=== PATIENT | female | born 1970 | race Caucasian/White ===

== ENCOUNTER → 2017-08-26 14:38 | Outpatient (CLI) | payer OTHER, MEDICAID, SELFPAY ==
[2017-08-26 16:04] LABS: Alanine Aminotransferase 41 IU/L (9-52); Albumin 4.1 g/dL (3.5-5.0); Albumin Globulin Ratio 1.3 (1.0-2.8); Alkaline Phosphatase 107 U/L (38-126); Aspartate Aminotransferase 31 IU/L (14-36); Bilirubin Total 0.5 mg/dL (0.2-1.3); Blood Urea Nitrogen 12 mg/dL (7-17); Calcium 9.4 mg/dL (8.4-10.2); Carbon Dioxide 30 mmol/L (22-32); Chloride 99 mmol/L (98-107); Estimated Glomerular Filt Rate > 60.0 mL/min (>60); Globulin 3.2 g/dL (1.7-4.1); Glucose 79 mg/dL (70-100); HEMOLYSIS 19 (0-50); Potassium 4.5 mmol/L (3.4-5.1); Sodium 140 mmol/L (137-145); Total Protein 7.3 g/dL (6.3-8.2)
== END ==
PROVIDERS: PCP Family Medicine; Visit Provider Family Medicine
DX: I10 Essential (primary) hypertension (principal)
CPT/HCPCS: 36415; 80053

== ENCOUNTER → 2017-09-17 10:09 | Outpatient (CLI) | payer OTHER, MEDICAID, SELFPAY ==
[2017-09-17 11:16] LABS: Add Manual Diff / Slide Review NO; Basophils Percent Auto 0.1 % (0-2); Eosinophils Percent Auto 2.2 % (2-4); Hematocrit 42.5 % (36-46); Lymphocytes Percent Auto 19.9 % (25-40); Mean Corpuscular HGB Conc 32.8 % (30-36); Mean Corpuscular Volume 79.2 fL (80-100); Monocytes Percent Auto 6.5 % (3-14); Neutrophils Absolute Auto 4400 /uL (3000-5900); Neutrophils Percent Auto 71.3 % (50-75); Platelet Count 484 X10^3/uL (150-400); Red Blood Cell Count 5.37 X10^6/uL (4.0-5.2); Red Cell Distribution Width 13.5 % (11.6-14.8); White Blood Cell Count 6.2 X10^3/uL (4.5-11.0)
[2017-09-17 11:32] LABS: BUN Creatinine Ratio 17.1 (6-22); Blood Urea Nitrogen 12 mg/dL (7-17); Calcium 9.8 mg/dL (8.4-10.2); Carbon Dioxide 31 mmol/L (22-32); Chloride 99 mmol/L (98-107); Cholesterol 290 mg/dL (140-199); Estimated Glomerular Filt Rate > 60.0 mL/min (>60); Glucose 91 mg/dL (70-100); HDL Cholesterol 51 mg/dL (40-60); HEMOLYSIS < 15 (0-50); LDL Cholesterol Calculated 201 mg/dL (<100); Potassium 4.8 mmol/L (3.4-5.1); Sodium 140 mmol/L (137-145); Triglycerides 189 mg/dL (35-150)
[2017-09-17 12:03] LABS: TSH w/ Reflex to FT4 0.39 uIU/mL (0.47-4.68)
[2017-09-17 13:57] LABS: Free T4, Direct Thyroxine 1.43 ng/dL (0.78-2.19)
== END ==
PROVIDERS: PCP Family Medicine; Visit Provider Family Medicine
DX: R42 Dizziness and giddiness (principal)
CPT/HCPCS: 36415; 80048; 80061; 84439; 84443; 85025

== ENCOUNTER → 2017-09-25 15:00 | Outpatient (CLI) | payer OTHER, MEDICAID, SELFPAY ==
[2017-09-25 16:24] LABS: TSH w/ Reflex to FT4 0.55 uIU/mL (0.47-4.68)
== END ==
PROVIDERS: PCP Family Medicine; Visit Provider Family Medicine
DX: E05.90 Thyrotoxicosis, unspecified without thyrotoxic crisis or storm (principal)
CPT/HCPCS: 36415; 84443

== ENCOUNTER → 2017-10-18 08:09 | Outpatient (CLI) | payer OTHER, MEDICAID, SELFPAY ==
--- NOTE | 2017-10-18 09:28 | PM.TREADMILL ---
Cardiac Stress Test Report Referral & Results Date Patient Seen: 10/18/17 Time Patient Seen: 09:28 Requesting provider: Kimberly Harp Indication: Chest pain Rest ECG: Unremarkable Procedure Note: Today following both written and verbal informed consent the patient was exercised according to a standard Alexis protocol patient went for a total of 6 min to seconds achieving a maximum heart rate of 146 maximum systolic blood pressure of 188. This is approximately 7.0 METS. Exercise was terminated at this point because of inability the patient to continue and targets having been met. Patient was also given Cardiolite through a previously started Hep-Lock IV by the nuclear fuel enrichment technician approximately 1 minute prior to the cessation of exercise. There are no ST-T segment changes Normal heart rate and blood pressure response to exercise Functional aerobic impairment rated 15% on the sedentary scale Rare PVCs were identified as well Impression: No evidence of ischemia based on ECG Average exercise capacity Perfusion imaging to be reported separately Please note: Actual ECG tracings can be found in the PACS system.
--- NOTE | 2017-10-23 14:44 | DI.NM.S_ITS ---
DATE OF SERVICE: 10/18/2017 REFERRING PHYSICIAN: Kimberly Harp MD PROCEDURE: Nuclear cardiac stress study. INDICATIONS: Fatigue and exertional lightheadedness. STRESS TEST: This patient was exercised according to a regular Alexis protocol for a total of 6 minutes and 2 seconds stopping due to fatigue. She reached a peak heart rate of 144 b beats per minute representing 84% of her maximum predicted heart rate. She had no complaints of chest discomfort or EKG changes of ischemia. No significant dysrhythmias identified. PROCEDURE: This patient received 26.2 mCi of technetium-99 Myoview for the stress portion of the examination. She returned 3 days later for the resting portion of the examination receiving an additional 25.2 mCi. FINDINGS: Raw Data: Raw data images demonstrate prominent breast tissue artifact, otherwise overall good image quality. Quantitative Gated SPECT Imaging: Gated images show a normal size ventricle with an end-diastolic volume estimated at 82 cc. Patient has hyperdynamic left ventricular contractility apparent with an ejection fraction estimated at 90%. No regional wall motion abnormalities noted. Myocardial Perfusion SPECT Imaging: Myocardial perfusion imaging shows a modest amount of breast tissue attenuation artifact which was essentially resolved with prone imaging. There are no perfusion abnormalities that would suggest ischemia or scar. IMPRESSION: Normal nuclear cardiac stress study. Becka Laxmi - Jocelyne/ doc#: [id number]/job#: [id number] dd: 10/21/2017 16:17:00 dt: 10/23/2017 14:32:00 DICTATING /COPIES TO: Steven Sevilla MD COPIES MNE: SARAHI
--- NOTE | 2017-10-23 16:54 | DI.NM.S_ITS ---
DATE OF SERVICE: 10/18/2017 ORDERING PROVIDER: Kimberly Harp MD PROCEDURE PERFORMED: Exercise treadmill stress and rest myocardial perfusion imaging study with gating to assess ejection fraction and regional wall motion. INDICATIONS: The patient is a 46-year-old obese female with atypical chest discomfort and lightheadedness. EXERCISE TREADMILL TESTING: The patient was able to exercise for a total of 6 minutes 2 seconds on a standard Alexis protocol suggesting moderately impaired exercise capacity with an JAVIER of +15% on the sedentary scale. With this she had normal hemodynamic response achieving a maximum heart rate of 146 bpm (84% of predicted maximum). She had no chest discomfort. Her resting ECG is normal and there are no ischemic changes or arrhythmias with stress. At 4 minutes 55 seconds of exercise, at heart rate of 144 bpm, 26.2 mCi of technetium-99 Myoview was injected and the patient was imaged 15 minutes later using a gated SPECT acquisition protocol. The patient returned 3 days later and was reinjected with an additional 25.2 mCi of technetium-99 Myoview and was imaged 30 minutes later, again using a gated SPECT acquisition protocol. FINDINGS: 1. Raw Data: There is fair myocardial tracer uptake, although prominent breast shadows clearly produce significant attenuation. The lung/heart ratio is normal at 0.30 with a normal TID ratio of 0.78. 2. Quantitative Gated SPECT: Post stress ejection fraction is calculated to be 90%, although it is likely an overestimate due to relatively small left ventricular volumes. There are no focal wall motion abnormalities. Resting ejection fraction is estimated at 78% but visually appears similar to the post stress images. Resting end-diastolic volume is 88 mL. 3. Myocardial Perfusion Imaging: Post stress supine images shows a fairly normal myocardial perfusion pattern without any obvious perfusion defects. There is a slight defect in the mid anterior wall, consistent with breast attenuation and this completely resolves on the prone images. The resting images show an identical perfusion pattern without any areas of improvement. CONCLUSION: 1. Normal myocardial perfusion study. 2. No evidence for myocardial ischemia or previous myocardial infarction. 3. Normal left ventricular systolic function with relatively small left ventricular volumes. 4. Moderately impaired exercise capacity without angina or ECG evidence of ischemia and a normal hemodynamic response to exercise. Laxmi Jovel - Liliane/ doc#: [id number]/job#: [id number] dd: 10/23/2017 16:12:00 dt: 10/23/2017 16:28:00 DICTATING MD/COPIES TO: Santi Kumar MD; Kimberly Harp MD COPIES MNE: IRMA SUTTON
== END ==
PROVIDERS: Family Provider Family Medicine; PCP Family Medicine; Visit Provider Family Medicine
DX: R07.9 Chest pain, unspecified (principal); R42 Dizziness and giddiness
CPT/HCPCS: 78452; 93016; 93017; 93018; A9502

== ENCOUNTER → 2017-11-11 09:27 | Outpatient (CLI) | payer OTHER, MEDICAID, SELFPAY ==
[2017-11-11 10:12] LABS: Add Manual Diff / Slide Review NO; Basophils Percent Auto 0.9 % (0-2); Eosinophils Percent Auto 2.7 % (2-4); Hematocrit 43.4 % (36-46); Hemoglobin 14.4 g/dL (12.0-16.0); Lymphocytes Percent Auto 21.3 % (25-40); Mean Corpuscular HGB Conc 33.2 % (30-36); Mean Corpuscular Hemoglobin 25.9 PG (26-34); Mean Corpuscular Volume 78.1 fL (80-100); Monocytes Percent Auto 6.9 % (3-14); Neutrophils Absolute Auto 4200 /uL (3000-5900); Neutrophils Percent Auto 68.2 % (50-75); Platelet Count 459 X10^3/uL (150-400); Red Blood Cell Count 5.55 X10^6/uL (4.0-5.2); Red Cell Distribution Width 13.4 % (11.6-14.8); White Blood Cell Count 6.1 X10^3/uL (4.5-11.0)
[2017-11-11 10:25] LABS: Hemoglobin A1C% w Est Avg Glu 5.6 % (4.0-6.0)
[2017-11-11 10:56] LABS: Alanine Aminotransferase 51 IU/L (9-52); Albumin 4.5 g/dL (3.5-5.0); Albumin Globulin Ratio 1.4 (1.0-2.8); Alkaline Phosphatase 94 U/L (38-126); Aspartate Aminotransferase 37 IU/L (14-36); Bilirubin Total 0.5 mg/dL (0.2-1.3); Blood Urea Nitrogen 12 mg/dL (7-17); Carbon Dioxide 25 mmol/L (22-32); Chloride 103 mmol/L (98-107); Estimated Glomerular Filt Rate > 60.0 mL/min (>60); Globulin 3.3 g/dL (1.7-4.1); Glucose 98 mg/dL (70-100); HEMOLYSIS < 15 (0-50); Magnesium 1.8 mg/dL (1.6-2.3); Potassium 4.7 mmol/L (3.4-5.1); Sodium 142 mmol/L (137-145); Total Protein 7.8 g/dL (6.3-8.2)
[2017-11-11 11:12] LABS: Free T4, Direct Thyroxine 1.13 ng/dL (0.78-2.19); Triiodothryronine T3 Uptake 31.3 % (23.5-40.5)
[2017-11-11 11:26] LABS: Thyroid Stimulating Hormone 0.67 uIU/mL (0.47-4.68)
[2017-11-11 11:28] LABS: Erythrocyte Sedimentation Rate 5 MM/HR (0-20)
[2017-11-11 11:35] LABS: HIV 1 and 2 Antibody NEGATIVE (NEGATIVE)
[2017-11-11 14:09] LABS: Free T3, Triiodothyronine Free 3.76 pg/mL (2.77-5.27)
[2017-11-13 13:34] LABS: Insulin Level Total 11.3 uIU/mL (2.0-19.6)
[2017-11-13 14:10] LABS: Anti Thyroglobulin Antibody < 1 IU/mL (< 2)
[2017-11-13 15:16] LABS: Progesterone < 0.5 ng/mL
[2017-11-13 22:22] LABS: Estrogen 90.5 pg/mL
== END ==
PROVIDERS: Family Provider Family Medicine; PCP Family Medicine; Visit Provider Nurse Practitioner Family
DX: R53.83 Other fatigue (principal); I10 Essential (primary) hypertension; E01.0 Iodine-deficiency related diffuse (endemic) goiter; G47.00 Insomnia, unspecified; R00.2 Palpitations; R30.0 Dysuria; N95.1 Menopausal and female climacteric states
CPT/HCPCS: 36415; 80053; 82672; 83001; 83002; 83036; 83525; 83735; 84144; 84439; 84443; 84479; 84481; 85025; 85651; 86140; 86703; 86800

== ENCOUNTER 2018-05-21 17:20 | Emergency (ER) | payer OTHER, MEDICAID, SELFPAY ==
[2018-05-21 17:25] VITALS: BP 201/99; PULSE 82; RESP 15; TEMP 36.4; O2SAT 100; BMI 40.7
--- NOTE | 2018-05-21 17:41 | DI.RAD.S_ITS ---
PROCEDURE: XR CHEST 1V INDICATIONS: CHEST PAIN TECHNIQUE: One view of the chest was acquired. COMPARISON: None. FINDINGS: Surgical changes and devices: None. Lungs and pleura: Lungs are clear. No pleural effusions or pneumothorax. Mediastinum: Mediastinal contours appear normal. Heart size is normal. Bones and chest wall: No suspicious bony lesions. Overlying soft tissues appear unremarkable. IMPRESSION: Portable chest within normal limits. Dictated by: Topher Ahmadi M.D. on 05/21/2018 at 17:13 Approved by: Topher Ahmadi M.D. on 05/21/2018 at 17:14
[2018-05-21 17:45] VITALS: BP 188/92; PULSE 78; RESP 15; TEMP 36.4; O2SAT 100
--- NOTE | 2018-05-21 18:11 | ED.GENADULT ---
HPI - General Adult General Chief complaint: Hypertension Stated complaint: CONSISTANT DIZZINESS, HIGH BLOOD PRESSURE Time Seen by Provider: 05/21/18 17:41 Source: patient Mode of arrival: ambulatory Limitations: no limitations History of Present Illness HPI narrative: 47-year-old female with a history of hypertension who is not currently on any medication for the blood pressure here for evaluation of high blood pressure and also vertigo. Patient states he has a history of vertigo. This been going on for some time. She has not taken any of her medications for. States she occasionally has shortness of breath but none now. No chest pain. No headache. Patient also states that she has a history of anxiety and has become anxious about all of her symptoms. Related Data Home Medications Medication Instructions Recorded Confirmed lamotrigine 200 mg tablet 200 mg PO DAILY tab 03/19/18 05/21/18 quetiapine 100 mg tablet 100 mg PO BEDTIME tab 03/19/18 05/21/18 Respironics DreamStation CPAP #1 ea 05/09/18 05/21/18 Previous Rx's Medication Instructions Recorded ondansetron [Zofran ODT] 4 mg SUBLINGUAL Q6HP PRN #10 odt 11/15/16 hydroxyzine HCl 25 mg tablet 1 - 2 mg PO Q6HP PRN #30 tab 07/08/17 meclizine 25 mg tablet 25 mg PO TIDP PRN #20 tab 08/26/17 lisinopril 20 mg PO DAILY #30 tab 05/21/18 Allergies Allergy/AdvReac Type Severity Reaction Status Date / Time morphine [MORPHINE] Allergy Unknown Verified 05/21/18 17:25 Opioids - Morphine Analogues Allergy Unknown Verified 05/21/18 17:25 [OPIOIDS - MORPHINE ANALOGUES] Opioids-Meperidine and Allergy Unknown Verified 05/21/18 17:25 Related [OPIOIDS-MEPERIDINE AND RELATED] Opioids-Methadone and Related Allergy Unknown Verified 05/21/18 17:25 [OPIOIDS-METHADONE AND RELATED] Review of Systems Constitutional Denies headache(s) and Denies weakness ENT Ears, Nose, Mouth, and Throat: Reports vertigo, Denies headache(s) and Reports disequilibrium Cardiovascular Denies chest pain and Reports dyspnea Respiratory Reports dyspnea Gastrointestinal Gastrointestinal: Denies abdominal pain, Denies nausea and Denies vomiting Genitourinary Denies dysuria Musculoskeletal Denies myalgias, Denies arthralgias and Denies tingling Neurologic Reports vertigo, Denies headache(s), Denies tingling, Reports disequilibrium and Denies weakness Hematologic/Lymphatic Denies easy bleeding and Denies easy bruising Allergic/Immunologic Denies urticaria [facility] Medical History Insomnia (Chronic) Obstructive sleep apnea of adult (Chronic) Anxiety (Chronic 1999) CTS (carpal tunnel syndrome) (Chronic 2012) Chronic back pain (Chronic 1997) Foot pain (Chronic 1997) Hearing loss (Chronic 1975) History of heavy periods (Chronic 2000) Migraines (Chronic 1980) Painful menstrual periods (Chronic 2000) Endocrine problem (Resolved 2010) Gestational hypertension (Resolved 2010) History of recurrent ear infection (Resolved 1975) Infertility (Resolved 2009) MRSA infection (Resolved 2012) Plantar warts (Resolved 1999) Recurrent sinusitis (Resolved 1995) Ruptured tympanic membrane (Resolved 1975) Substance abuse (Resolved 1988) Social History pets and animals: No education level: college seatbelt use: always water heater temp set < 120 deg: Yes working smoke detector in home: Yes fire extinguisher in home: Yes carbon monox detector in home: Yes firearms in home: No Smoking Status: Former smoker Tobacco: How many years used: 24 quit status: quit date established substance use type: former substance user, crack/cocaine and amphetamines during the past year weight has: increased > 10 lbs well-balanced diet: daily or most days daily servings fruits/ve-1 caffeine: Yes (1-2 caffeine drinks per day, rare/occasional carbonated beverages) eating out: rarely or never additional social history: Significant hearing loss Exam Initial Vital Signs Initial Vital Signs: Vital Signs Temperature 97.5 F L 05/21/18 17:25 Pulse Rate 82 05/21/18 17:25 Respiratory Rate 15 05/21/18 17:25 Blood Pressure 201/99 H 05/21/18 17:25 Pulse Oximetry 100 05/21/18 17:25 Const General: cooperative, healthy appearing, comfortable, well developed, well groomed and No acute distress Orientation: alert, awake and oriented x3 HENMT Head: normal to inspection and normocephalic Eyes EOM: EOM intact bilaterally Resp Effort & Inspection: normal respiratory effort Auscultation: clear to auscultation bilaterally Cardio Rate: regular rate Rhythm: regular rhythm Pulses: radial pulses present GI Inspection: non-distended Palpation: soft and No tender Skin Lesions: no lesions Rashes: no rashes Neuro General: alert, awake and oriented x3 Cranial Nerves: CN's II-XI intact bilaterally Cognition: normal cognition Speech: speech normal Gait: normal gait Motor: muscle tone normal throughout Sensory Exam: no sensory deficits noted Extrem General: normal to inspection, capillary refill normal and No edema Psych Appearance: grossly normal and well kempt Course Orders Ordered: Discontinued Medications Lorazepam (Ativan) 1 mg PO NOW ONE Stop: 05/21/18 18:47 Last Admin: 05/21/18 19:40 Dose: Not Given Vital Signs - 8 hr 05/21/18 17:25 05/21/18 17:45 Temperature 97.5 F L 97.5 F L Pulse Rate 82 78 Respiratory Rate 15 15 Blood Pressure 201/99 H Blood Pressure [Right Arm] 188/92 H Pulse Oximetry 100 100 Medical Decision Making Lab Data Lab results reviewed: Yes I reviewed the patient's lab results. Result diagrams: 05/21/18 18:20 05/21/18 18:20 Lab Results 05/21/18 05/21/18 Range/Units 18:20 18:20 WBC 10.2 (4.5-11.0) X10^3/uL RBC 5.70 H (4.0-5.2) X10^6/uL Hgb 14.8 (12.0-16.0) g/dL Hct 44.4 (36-46) % MCV 77.9 L (80-100) fL MCH 26.0 (26-34) PG MCHC 33.4 (30-36) % RDW 13.5 (11.6-14.8) % Plt Count 473 H (150-400) X10^3/uL Neut % (Auto) 69.7 (50-75) % Lymph % (Auto) 21.0 L (25-40) % [place] % (Auto) 7.1 (3-14) % Eos % (Auto) 1.5 L (2-4) % Baso % (Auto) 0.7 (0-2) % Neut # (Auto) 7100 H (5930-5885) /uL Lymph # (Auto) 2100 (4452-2708) /uL [place] # (Auto) 700 (0-900) /uL Eos # (Auto) 100 (0-450) /uL Baso # (Auto) 100 (0-100) /uL Sodium 137 (137-145) mmol/L Potassium 3.8 (3.4-5.1) mmol/L Chloride 101 (98-107) mmol/L Carbon Dioxide 28 (22-32) mmol/L BUN 8 (7-17) mg/dL Creatinine 0.60 (0.52-1.04) mg/dL Estimated GFR > 60.0 (>60) mL/min BUN/Creatinine Ratio 13.3 (6-22) Glucose 77 (70-100) mg/dL Calcium 9.2 (8.4-10.2) mg/dL Total Bilirubin 0.4 (0.2-1.3) mg/dL AST 31 (14-36) IU/L ALT 57 H (9-52) IU/L Alkaline Phosphatase 109 (38-126) U/L Total Creatine Kinase 49 (30-135) U/L CK-MB (CK-2) TNP CK-MB (CK-2) Rel Index TNP Troponin I < 0.012 (0.01-0.034) ng/mL Total Protein 8.1 (6.3-8.2) g/dL Albumin 4.6 (3.5-5.0) g/dL Globulin 3.5 (1.7-4.1) g/dL Albumin/Globulin Ratio 1.3 (1.0-2.8) Lipase 33 (23-300) U/L Imaging Data Chest x-ray: Radiologist's impression: [address] [address] XRay Report Signed Patient: Laxmi Jovel [facility]#: [id number] : 1970Acct:[id number] Age/Sex: 47 / FDate of Service: 05/21/18 Loc: ED Accession Number: [id number] Procedure: XR chest 1V Ordering Provider: Rin Alonso D.O. PROCEDURE: XR CHEST 1V INDICATIONS: CHEST PAIN TECHNIQUE: One view of the chest was acquired. COMPARISON: None. FINDINGS: Surgical changes and devices: None. Lungs and pleura: Lungs are clear. No pleural effusions or pneumothorax. Mediastinum: Mediastinal contours appear normal. Heart size is normal. Bones and chest wall: No suspicious bony lesions. Overlying soft tissues appear unremarkable. IMPRESSION: Portable chest within normal limits. Dictated by: Topher Ahmadi M.D. on 05/21/2018 at 17:13 Approved by: Topher Ahmadi M.D. on 05/21/2018 at 17:14 ECG Data Attestation: I personally reviewed and interpreted this ECG as follows: Prior ECG tracings: not available for review Interpretation: Sinus rhythm Ventricular rate is 75 Normal axis Normal intervals Normal QRS Normal QTC No ST T wave changes MDM Narrative Medical decision making narrative: Patient's blood pressures have improved since being here in the ER. No chest pain, not tachypneic chest x-ray is unremarkable. No EKG changes. Patient has a history of vertigo and states that she has had this for the past couple days. Had a long discussion with her regarding blood pressure and how she should be taking at home. She has been on lisinopril in the past but stopped when her homeopathic doctor told her to stop taking it. Will restart her on this medication. She was given return precautions. She expressed understanding and agreement with plan Discharge Plan Departure Patient Disposition: Home Clinical Impression: Vertigo Hypertension Qualifiers: Hypertension type: unspecified Qualified Code(s): I10 - Essential (primary) hypertension Discharge Date/Time: 05/21/18 19:42 Interventions: ED Discharge Assessment Last Done: 05/21/18 19:41 Instructions: DI for High Blood Pressure Activity Restrictions/Additional Instructions: Take your medications as directed. Contact her primary care doctor for follow-up. Return to the emergency department for any new or worsening symptoms Prescriptions: New lisinopril 20 mg tablet 20 mg PO DAILY Qty: 30 RF: 0 No Action ondansetron [Zofran ODT] 4 MG tablet,disintegrating 4 mg Sublingual Q6HP PRNQty: 10 RF: 0 hydroxyzine HCl 25 mg tablet 1 - 2 mg PO Q6HP PRN (Reason: anxiety) Qty: 30 RF: 1 meclizine 25 mg tablet 25 mg PO TIDP PRN (Reason: dizziness) Qty: 20 RF: 0 quetiapine 100 mg tablet 100 mg PO BEDTIME RF: 0 lamotrigine [Lamictal] 200 mg tablet 200 mg PO DAILY RF: 0 Respironics DreamStation CPAP Qty: 1 RF: 0 Referrals: Kimberly Harp MD [Primary Care Provider] -
[2018-05-21 18:33] LABS: Add Manual Diff / Slide Review NO; Basophils Absolute Auto 100 /uL (0-100); Basophils Percent Auto 0.7 % (0-2); Eosinophils Absolute Auto 100 /uL (0-450); Eosinophils Percent Auto 1.5 % (2-4); Hematocrit 44.4 % (36-46); Hemoglobin 14.8 g/dL (12.0-16.0); Lymphocytes Absolute Auto 2100 /uL (1100-4500); Mean Corpuscular HGB Conc 33.4 % (30-36); Mean Corpuscular Volume 77.9 fL (80-100); Monocytes Absolute Auto 700 /uL (0-900); Monocytes Percent Auto 7.1 % (3-14); Neutrophils Absolute Auto 7100 /uL (1500-7000); Neutrophils Percent Auto 69.7 % (50-75); Platelet Count 473 X10^3/uL (150-400); Red Cell Distribution Width 13.5 % (11.6-14.8); White Blood Cell Count 10.2 X10^3/uL (4.5-11.0)
[2018-05-21 18:45] LABS: Alanine Aminotransferase 57 IU/L (9-52); Albumin 4.6 g/dL (3.5-5.0); Albumin Globulin Ratio 1.3 (1.0-2.8); Alkaline Phosphatase 109 U/L (38-126); Aspartate Aminotransferase 31 IU/L (14-36); BUN Creatinine Ratio 13.3 (6-22); Bilirubin Total 0.4 mg/dL (0.2-1.3); Blood Urea Nitrogen 8 mg/dL (7-17); Calcium 9.2 mg/dL (8.4-10.2); Carbon Dioxide 28 mmol/L (22-32); Chloride 101 mmol/L (98-107); Creatine Kinase 49 U/L (30-135); Estimated Glomerular Filt Rate > 60.0 mL/min (>60); Globulin 3.5 g/dL (1.7-4.1); Glucose 77 mg/dL (70-100); HEMOLYSIS < 15 (0-50); Lipase 33 U/L (23-300); Potassium 3.8 mmol/L (3.4-5.1); Sodium 137 mmol/L (137-145); Total Protein 8.1 g/dL (6.3-8.2)
[2018-05-21 18:56] LABS: Troponin I < 0.012 ng/mL (0.01-0.034)
[2018-05-21 19:41] VITALS: BP 139/76; PULSE 87; RESP 14; O2SAT 100
== END 2018-05-21 19:42 | disposition home or self-care (01) ==
PROVIDERS: Emergency Medicine; Emergency Provider Emergency Medicine; Family Provider Family Medicine; PCP Family Medicine
DX: I10 Essential (primary) hypertension (principal); R42 Dizziness and giddiness
CPT/HCPCS: 36591; 71045; 80053; 82550; 83690; 84484; 85025; 93005; 99283; 99285

== ENCOUNTER → 2018-07-01 15:33 | Outpatient (CLI) | payer OTHER, MEDICAID, SELFPAY ==
--- NOTE | 2018-07-01 15:34 | DI.MRI.S_ITS ---
PROCEDURE: MR HEAD/BRAIN WO/W CON INDICATIONS: Persistent Vertigo TECHNIQUE: Noncontrast axial T1 spin echo, axial T2 fast spin echo, sagittal and axial FLAIR, coronal T2 fast spin echo, axial gradient echo, axial diffusion and ADC through the brain. After the administration of contrast, axial and coronal 3D VIBE or T1 spin echo with fat saturation through the brain. COMPARISON: None. FINDINGS: Image quality: Excellent. CSF Spaces: Basal cisterns are patent. No extra-axial fluid collections. Ventricles are normal in size and shape. Brain: No midline shift. No intracranial bleeds or masses. No abnormal intracranial enhancement. The brainstem appears normal. Diffusion-weighted images demonstrate no acute ischemic insults. No encephalomalacia. Minimal subcortical white matter chronic microvascular ischemic changes. Normal intravascular flow voids are present. Skull and face: Calvarial marrow is normal in signal. Orbits appear normal. Sinuses: Sinuses and mastoids appear clear. IMPRESSION: 1. No acute intracranial disease process. 2. No areas of acute or chronic infarction. 3. No abnormal intracranial mass or suspicious postcontrast enhancement. Dictated by: aMrian Bass MD, PhD on 07/01/2018 at 17:21 Approved by: Marian Bass MD, PhD on 07/01/2018 at 17:37
== END ==
PROVIDERS: Family Provider Family Medicine; PCP Family Medicine; Visit Provider Family Medicine
DX: R42 Dizziness and giddiness (principal)
CPT/HCPCS: 70553; A9579

== ENCOUNTER → 2018-08-13 11:37 | Outpatient (CLI) | payer OTHER, MEDICAID, SELFPAY ==
--- NOTE | 2018-08-13 | DI.US.S_ITS ---
PROCEDURE: US THYROID INDICATIONS: NEOPLASM OF UNCERTAIN BEHAVIOR OF THYROID GLAND TECHNIQUE: Real-time scanning was performed of the thyroid gland, with image documentation. COMPARISON: None. FINDINGS: Right: Thyroid lobe measures 6 x 2.0 x 2 cm, and is homogeneous in echotexture. Left: Thyroid lobe measures 6.8 x 2.3 x 2.5 cm, and is homogenous in echotexture. Isthmus: 6 mm thick. Nodule number: #1 Location: Operative medical right thyroid lobe Size: 2 x 1.4 x 2.2 cm. Composition: Solid Echogenicity: Hypoechoic Shape: Wider than tall Margins: Smooth/lobulated Echogenic foci: Punctate calcifications are seen. Total points: 9 ACR TI-RADS category: 5, highly suspicious. Nodule number: #2 Location: Mid to lower portion of right thyroid lobe Size: 2.9 x 2.0 x 2.3 cm. Composition: Spongiform Echogenicity: Hypoechoic Shape: Wider than tall Margins: Smooth Echogenic foci: Punctate Total points: 6 ACR TI-RADS category: 4, moderately suspicious. Nodule number: #3 Location: Mid pole left thyroid lobe Size: 1.7 x 1.5 x 1 cm. Composition: Solid Echogenicity: Hypoechoic Shape: wider than tall. Margins: Smooth Echogenic foci: Punctate Total points: 7 ACR TI-RADS category: 5, highly suspicious. Nodule number: #4 Location: Lower pole of left thyroid lobe Size: 3.1 x 1.9 x 2.5 cm. Composition: Predominantly solid Echogenicity: Hypoechoic Shape: wider than tall Margins: Smooth/lobulated Echogenic foci: Punctate Total points: 9 ACR TI-RADS category: 5, highly suspicious IMPRESSION: 1. Multiple bilateral thyroid nodules as described above. At least 3 of the nodules are considered highly suspicious. Findings aspiration of these nodules are recommended for more definitive diagnosis. ACR TI-RADS definitions and recommendations: TI-RADS 1 (benign): 0 points. FNA not needed. TI-RADS 2 (not suspicious): 2 points. FNA not needed. TI-RADS 3 (mildly suspicious): 3 points. * FNA if 2.5 cm or larger, follow up if 1.5 cm or larger (at 1, 3, and 5 years). TI-RADS 4 (moderately suspicious): 4-6 points. * FNA if 1.5 cm or larger, follow up if 1 cm or larger (at 1, 2, 3, and 5 years). TI-RADS 5 (highly suspicious): 7 points or more. * FNA if 1 cm or larger, follow up if 0.5 cm or larger (every year for 5 years). Dictated by: Jag Matt M.D. on 08/13/2018 at 13:58 Approved by: Jag Matt M.D. on 08/13/2018 at 14:05
== END ==
PROVIDERS: Family Provider Family Medicine; PCP Family Medicine; Visit Provider Otolaryngology
DX: D44.0 Neoplasm of uncertain behavior of thyroid gland (principal)
CPT/HCPCS: 76536

== ENCOUNTER 2018-09-10 20:15 | Emergency (ER) | payer OTHER, MEDICAID, SELFPAY ==
--- NOTE | 2018-09-10 20:25 | DI.CT.S_ITS ---
PROCEDURE: CT KIDNEY URETER BLADDER (KUB) INDICATIONS: Sudden L flank pain with nausea and dysuria TECHNIQUE: Noncontrast 5 mm thick sections acquired from the diaphragms to the symphysis. 5 mm thick coronal and sagittal reformats were then performed. For radiation dose reduction, the following was used: automated exposure control, adjustment of mA and/or kV according to patient size. COMPARISON: None. FINDINGS: Image quality: Excellent. Lung bases: Lung bases are clear. Heart size is normal. Urinary system: Both kidneys are normal in size. No kidney stones. No hydronephrosis or perinephric fat stranding. Both ureters appear non-dilated throughout their expected courses. The bladder is decompressed. No calcified bladder stones. Other solid organs: There is impressive hepatic steatosis. Probable small hemangioma in the right lobe measuring approximately 1.8 cm. Gallbladder is unremarkable. Pancreas is normal in contours. Spleen is normal in size. No adrenal nodules. Peritoneum and bowel: Unenhanced bowel loops demonstrate normal wall thickness and caliber. No free fluid or air. Nodes and vessels: No retroperitoneal or mesenteric adenopathy by size criteria. Aorta and inferior vena cava are normal in caliber. Abdominal wall: No ventral hernias. Pelvis: No free pelvic fluid. No inguinal hernias or adenopathy. Bones: No suspicious bony lesions. No vertebral body compression fractures. IMPRESSION: 1. No evidence of renal stone or ureteral stone or hydronephrosis. 2. Impressive hepatic steatosis. 3. Probable small right lobe liver hemangioma. Dictated by: Urban Queen M.D. on 09/10/2018 at 20:54 Approved by: Urban Queen M.D. on 09/10/2018 at 20:58
[2018-09-10 20:28] VITALS: BP 163/90; PULSE 79; RESP 20; TEMP 36.9; O2SAT 99; BMI 48.0
--- NOTE | 2018-09-10 20:40 | ED.ABDPAIN ---
HPI - Abdominal Pain <Kym AlvaradoJAVY - Last Filed: 09/10/18 22:36> General Chief Complaint: Back Pain/Injury Stated Complaint: back pain, difficulty breathing Time Seen by Provider: 09/10/18 20:24 Source: patient Mode of arrival: ambulatory Limitations: no limitations History of Present Illness HPI narrative: 47-year-old female with a history of hypertension, presents emergency department today complaining of sudden onset of left flank pain. He describes the pain as a 8/10 short stabbing as well as a aching pain that radiates down to her groin. She states movement makes it a little bit worse however does significantly aggravated. She complains of associated dysuria that started at the same times onset of pain, as well as sweats and nausea. She denies a history of renal calculi. Denies dizziness, chest pain, shortness of breath, abdominal pain, hematuria, diarrhea, constipation, or leg swelling. MD complaint: flank pain Onset (ago): minute(s) Pain Consistency: constant Location: diffuse Severity: severe Severity scale (1-10): 8 Quality: aching and sharp Radiation: L flank Migration to: other Relieving factors: nothing Exacerbating factors: movement Associated symptoms: nausea Related Data Home Medications Medication Instructions Recorded Confirmed Respironics DreamStation CPAP #1 ea 05/09/18 06/14/18 Previous Rx's Medication Instructions Recorded hydroxyzine HCl 25 mg tablet 1 - 2 mg PO Q6HP PRN #30 tab 07/08/17 meclizine 25 mg tablet 25 mg PO TIDP PRN #90 tab 06/18/18 lisinopril 20 mg tablet 20 mg PO DAILY #30 tab 06/23/18 lamotrigine 200 mg tablet 200 mg PO DAILY #90 tab 07/29/18 ondansetron HCl 4 mg tablet 4 mg PO TID-QID PRN #30 tab 09/01/18 sulfamethoxazole-trimethoprim 1 tab PO BID 5 Days #10 tab 09/10/18 Allergies Allergy/AdvReac Type Severity Reaction Status Date / Time morphine [MORPHINE] Allergy Unknown Verified 06/18/18 09:02 Opioids - Morphine Analogues Allergy Unknown Verified 06/18/18 09:02 [OPIOIDS - MORPHINE ANALOGUES] Opioids-Meperidine and Allergy Unknown Verified 06/18/18 09:02 Related [OPIOIDS-MEPERIDINE AND RELATED] Opioids-Methadone and Related Allergy Unknown Verified 06/18/18 09:02 [OPIOIDS-METHADONE AND RELATED] Review of Systems <JAVY Castaneda - Last Filed: 09/10/18 22:36> Review of Systems REVIEW OF SYSTEMS: GENERAL: Denies fever, chills, malaise, or wt. loss. HENT: No head trauma, sore throat, or dysphagia. EYES: No loss of vision, double vision, eye pain, or irritation. CARDIOVASCULAR: No chest pain, palpitations, or orthopnea. RESPIRATORY: No shortness of breath or cough. GASTROINTESTINAL: Denies abdominal pain. GENITOURINARY: Complains of flank pain, see HPI. Urinary incontinence, hesitancy, frequency, or dysuria. No vaginal discharge or dyspareunia. Denies concerns for STIs MUSCULOSKELETAL: No pain, weakness, or trauma. INTEGUMENTARY: No rash, lesions, or pruritus. NEURO: No numbness, tingling, memory loss, confusion, or headaches. PSYCH: No behavior or mood changes. PFSH <JAVY Castaneda - Last Filed: 09/10/18 22:36> Medical History Insomnia (Chronic) Obstructive sleep apnea of adult (Chronic) Anxiety (Chronic 1999) CTS (carpal tunnel syndrome) (Chronic 2012) Chronic back pain (Chronic 1997) Foot pain (Chronic 1997) Hearing loss (Chronic 1975) History of heavy periods (Chronic 2000) Migraines (Chronic 1980) Painful menstrual periods (Chronic 2000) Endocrine problem (Resolved 2010) Gestational hypertension (Resolved 2010) History of recurrent ear infection (Resolved 1975) Infertility (Resolved 2009) MRSA infection (Resolved 2012) Plantar warts (Resolved 1999) Recurrent sinusitis (Resolved 1995) Ruptured tympanic membrane (Resolved 1975) Substance abuse (Resolved 1988) Surgical History Anesthesia (Resolved) History of hand surgery (Resolved 2008) Status post delivery (Resolved 2010) Family History Father Age: 74 MS (multiple sclerosis) Heart disease Hypertension Mother Age: 75 Anxiety Depression Mental health problem Thyroid cancer Hypertension Grandfather Bladder cancer Grandmother Stroke Grandmother No problems noted. Social History pets and animals: No education level: college seatbelt use: always water heater temp set < 120 deg: Yes working smoke detector in home: Yes fire extinguisher in home: Yes carbon monox detector in home: Yes firearms in home: No Smoking Status: Former smoker Tobacco: How many years used: 24 quit status: quit date established substance use type: former substance user, crack/cocaine and amphetamines during the past year weight has: increased > 10 lbs well-balanced diet: daily or most days daily servings fruits/ve-1 caffeine: Yes (1-2 caffeine drinks per day, rare/occasional carbonated beverages) eating out: rarely or never additional social history: Significant hearing loss Family History Father Age: 74 MS (multiple sclerosis) Heart disease Hypertension Mother Age: 75 Anxiety Depression Mental health problem Thyroid cancer Hypertension Grandfather Bladder cancer Grandmother Stroke Grandmother No problems noted. Social History pets and animals: No education level: college seatbelt use: always water heater temp set < 120 deg: Yes working smoke detector in home: Yes fire extinguisher in home: Yes carbon monox detector in home: Yes firearms in home: No Smoking Status: Former smoker Tobacco: How many years used: 24 quit status: quit date established substance use type: former substance user, crack/cocaine and amphetamines during the past year weight has: increased > 10 lbs well-balanced diet: daily or most days daily servings fruits/ve-1 caffeine: Yes (1-2 caffeine drinks per day, rare/occasional carbonated beverages) eating out: rarely or never additional social history: Significant hearing loss Exam <JAVY Castaneda - Last Filed: 09/10/18 22:36> Initial Vital Signs Initial Vital Signs: Vital Signs Temperature 98.4 F 09/10/18 20:28 Pulse Rate 79 09/10/18 20:28 Respiratory Rate 20 09/10/18 20:28 Blood Pressure 163/90 H 09/10/18 20:28 Pulse Oximetry 99 09/10/18 20:28 PHYSICAL EXAMINATION: GENERAL: Patient was initially diaphoretic upon initial exam, this resolved within a few minutes and after the administration of Toradol. Well groomed, alert, and cooperative. Answers questions promptly and appropriately. Vital signs noted. HENT: Normocephalic, atraumatic. Hearing intact. Oral mucosa is pink and moist. EYES: Conjunctiva pink, sclera white, no periorbital swelling. CARDIOVASCULAR: S1 and S2 sounds normal. Regular rate and rhythm, no murmurs, clicks, or bruits. No pedal edema. RESPIRATORY: Normal respiratory rate, trachea midline, airway patent. No stridor, nasal flaring or accessory muscle use. Lungs are clear in all lynne without wheeze, rhonchi, or crackles. GASTROINTESTINAL: Bowel sounds normoactive. Abdomen is soft and non-tender. No organomegaly, no palpable masses. GENITALURINARY: While patient complains of left flank pain, tenderness was not elected upon palpation. Slight tenderness with palpation of lumbar muscle. Random bladder scan revealed 23 ml of urine MUSCULOSKELETAL: Normal gait and coordination. Equal tone and mass bilaterally. EXTREMITIES: CMS intact, no pedal edema. SKIN: Warm, dry, soft, appropriate color for ethnicity. No lesions, rashes, or wounds. NEURO: Alert and Oriented X 3. Good coordination. No ataxia, or sensory deficits, or cognitive issues. PSYCH: Appropriate affect and mood. <Franklin Sánchez DO - Last Filed: 09/11/18 00:21> Initial Vital Signs Initial Vital Signs: Vital Signs Temperature 98.4 F 09/10/18 20:28 Pulse Rate 79 09/10/18 20:28 Respiratory Rate 20 09/10/18 20:28 Blood Pressure 163/90 H 09/10/18 20:28 Pulse Oximetry 99 09/10/18 20:28 Course <JAVY Castaneda - Last Filed: 09/10/18 22:36> Course Narrative: Upon EKG was added on to workup as patient was diaphoretic and CT scan did not reveal kidney stone as initially suspected. Orders Ordered: ED Orders 09/10/18 20:25 CT kidney ureter bladder (KUB) Stat Troponin & CK Cardiac Panel Stat 09/10/18 20:45 Complete Blood Count AUTO DIFF Stat Comprehensive Metabolic Panel Stat Lipase Stat 09/10/18 21:15 Urine Culture Stat Urine Microscopic Stat 09/10/18 21:18 EKG-12 Lead Stat Discontinued Medications Diazepam (Valium) 10 mg PO NOW ONE Stop: 09/10/18 21:44 Last Admin: 09/10/18 21:50 Dose: 10 mg Sodium Chloride (Normal Saline 0.9%) 1,000 mls @ 1,000 mls/hr IV BOLUS ONE Stop: 09/10/18 21:24 Last Infusion: 09/10/18 22:00 Dose: 0 mls/hr Infusion: 09/10/18 21:52 Dose: 1,000 mls/hr Admin: 09/10/18 20:55 Dose: 1,000 mls/hr Ketorolac Tromethamine (Toradol) 30 mg IV NOW ONE Stop: 09/10/18 20:25 Last Admin: 09/10/18 20:55 Dose: 30 mg Ondansetron HCl (Zofran) 4 mg IV NOW ONE Stop: 09/10/18 20:25 Last Admin: 09/10/18 20:55 Dose: 4 mg Reevaluation(s) Reevaluation #1: Patient states she felt slightly better after admission Toradol however, the pain still remains. Consultations Consultation #1: Consulted with Dr. Sánchez. Vital Signs - 8 hr 09/10/18 20:28 09/10/18 21:34 Temperature 98.4 F Pulse Rate 79 78 Respiratory Rate 20 18 Blood Pressure 163/90 H Blood Pressure [Left Arm] 134/79 Pulse Oximetry 99 98 <Franklin Sánchez, DO - Last Filed: 09/11/18 00:21> Orders Ordered: ED Orders 09/10/18 20:25 CT kidney ureter bladder (KUB) Stat Troponin & CK Cardiac Panel Stat 09/10/18 20:45 Complete Blood Count AUTO DIFF Stat Comprehensive Metabolic Panel Stat Lipase Stat 09/10/18 21:15 Urine Culture Stat Urine Microscopic Stat 09/10/18 21:18 EKG-12 Lead Stat Discontinued Medications Diazepam (Valium) 10 mg PO NOW ONE Stop: 09/10/18 21:44 Last Admin: 09/10/18 21:50 Dose: 10 mg Sodium Chloride (Normal Saline 0.9%) 1,000 mls @ 1,000 mls/hr IV BOLUS ONE Stop: 09/10/18 21:24 Last Infusion: 09/10/18 22:00 Dose: 0 mls/hr Infusion: 09/10/18 21:52 Dose: 1,000 mls/hr Admin: 09/10/18 20:55 Dose: 1,000 mls/hr Ketorolac Tromethamine (Toradol) 30 mg IV NOW ONE Stop: 09/10/18 20:25 Last Admin: 09/10/18 20:55 Dose: 30 mg Ondansetron HCl (Zofran) 4 mg IV NOW ONE Stop: 09/10/18 20:25 Last Admin: 09/10/18 20:55 Dose: 4 mg Vital Signs - 8 hr 09/10/18 20:28 09/10/18 21:34 Temperature 98.4 F Pulse Rate 79 78 Respiratory Rate 20 18 Blood Pressure 163/90 H Blood Pressure [Left Arm] 134/79 Pulse Oximetry 99 98 MDM - Abdominal Pain <JAVY Castaneda - Last Filed: 09/10/18 22:36> Medical Records Attestation: I reviewed the patient's medical records. Lab Data Attestation: I reviewed the patient's lab results. Result diagrams: 09/10/18 20:45 09/10/18 20:45 Lab Results 09/10/18 09/10/18 09/10/18 Range/Units 20:25 20:45 20:45 WBC 9.4 (4.5-11.0) X10^3/uL RBC 5.18 (4.0-5.2) X10^6/uL Hgb 13.5 (12.0-16.0) g/dL Hct 41.1 (36-46) % MCV 79.4 L (80-100) fL MCH 26.0 (26-34) PG MCHC 32.8 (30-36) % RDW 13.4 (11.6-14.8) % Plt Count 466 H (150-400) X10^3/uL Neut % (Auto) 64.5 (50-75) % Lymph % (Auto) 24.5 L (25-40) % [place] % (Auto) 8.3 (3-14) % Eos % (Auto) 1.7 L (2-4) % Baso % (Auto) 1.0 (0-2) % Neut # (Auto) 6100 (9233-8251) /uL Lymph # (Auto) 2300 (1084-5392) /uL [place] # (Auto) 800 (0-900) /uL Eos # (Auto) 200 (0-450) /uL Baso # (Auto) 100 (0-100) /uL Sodium 141 (137-145) mmol/L Potassium 3.8 (3.4-5.1) mmol/L Chloride 101 (98-107) mmol/L Carbon Dioxide 27 (22-32) mmol/L BUN 16 (7-17) mg/dL Creatinine 0.70 (0.52-1.04) mg/dL Estimated GFR > 60.0 (>60) mL/min BUN/Creatinine Ratio 22.9 H (6-22) Glucose 105 H (70-100) mg/dL Calcium 9.4 (8.4-10.2) mg/dL Total Bilirubin 0.4 (0.2-1.3) mg/dL AST 32 (14-36) IU/L ALT 51 (9-52) IU/L Alkaline Phosphatase 100 (38-126) U/L Total Creatine Kinase 54 (30-135) U/L CK-MB (CK-2) TNP CK-MB (CK-2) Rel Index TNP Troponin I < 0.012 (0.01-0.034) ng/mL Total Protein 7.5 (6.3-8.2) g/dL Albumin 4.4 (3.5-5.0) g/dL Globulin 3.1 (1.7-4.1) g/dL Albumin/Globulin Ratio 1.4 (1.0-2.8) Lipase 53 (23-300) U/L Urine RBC (0-5/HPF) Urine WBC (0-5/HPF) Ur Squamous Epith Cells (0-5/HPF) Urine Bacteria (None) Hyaline Casts (None) Urine Mucus (Negative) Ur Culture Indicated? 09/10/18 Range/Units 21:15 WBC (4.5-11.0) X10^3/uL RBC (4.0-5.2) X10^6/uL Hgb (12.0-16.0) g/dL Hct (36-46) % MCV (80-100) fL MCH (26-34) PG MCHC (30-36) % RDW (11.6-14.8) % Plt Count (150-400) X10^3/uL Neut % (Auto) (50-75) % Lymph % (Auto) (25-40) % [place] % (Auto) (3-14) % Eos % (Auto) (2-4) % Baso % (Auto) (0-2) % Neut # (Auto) (3906-1246) /uL Lymph # (Auto) (3366-3657) /uL [place] # (Auto) (0-900) /uL Eos # (Auto) (0-450) /uL Baso # (Auto) (0-100) /uL Sodium (137-145) mmol/L Potassium (3.4-5.1) mmol/L Chloride (98-107) mmol/L Carbon Dioxide (22-32) mmol/L BUN (7-17) mg/dL Creatinine (0.52-1.04) mg/dL Estimated GFR (>60) mL/min BUN/Creatinine Ratio (6-22) Glucose (70-100) mg/dL Calcium (8.4-10.2) mg/dL Total Bilirubin (0.2-1.3) mg/dL AST (14-36) IU/L ALT (9-52) IU/L Alkaline Phosphatase (38-126) U/L Total Creatine Kinase (30-135) U/L CK-MB (CK-2) CK-MB (CK-2) Rel Index Troponin I (0.01-0.034) ng/mL Total Protein (6.3-8.2) g/dL Albumin (3.5-5.0) g/dL Globulin (1.7-4.1) g/dL Albumin/Globulin Ratio (1.0-2.8) Lipase (23-300) U/L Urine RBC 5-10/hpf H (0-5/HPF) Urine WBC 0-1/hpf (0-5/HPF) Ur Squamous Epith Cells 1-5 /hpf (0-5/HPF) Urine Bacteria Moderate (10-30) H (None) Hyaline Casts 0-1/lpf (None) Urine Mucus 2+ H (Negative) Ur Culture Indicated? Specimen cultured Point of care testing: Urine Dip Bedside Urine Glucose Negative Bedside Urine Bilirubin - Negative Bedside Urine Ketone - Negative Urine Specific [place] 1.030 Bedside Urine Occult Blood + Bedside Urine pH 5.5 Bedside Urine Protein +/- 15 Bedside Urine Urobilinogen +/- 1mg Bedside Urine Nitrite - Negative Bedside Urine Leukocytes - Negative Esterase Imaging Data KUB: Radiologist's impression: [address] [place] [id number] Scan Report Signed Patient: Laxmi Jovel [facility]#: [id number] : 1970Acct:[id number] Age/Sex: 47 / FDate of Service: 09/10/18 Loc: ED Accession Number: [id number] Procedure: CT kidney ureter bladder (KUB) Ordering Provider: Kym Alvarado PROCEDURE: CT KIDNEY URETER BLADDER (KUB) INDICATIONS: Sudden L flank pain with nausea and dysuria TECHNIQUE: Noncontrast 5 mm thick sections acquired from the diaphragms to the symphysis. 5 mm thick coronal and sagittal reformats were then performed. For radiation dose reduction, the following was used: automated exposure control, adjustment of mA and/or kV according to patient size. COMPARISON: None. FINDINGS: Image quality: Excellent. Lung bases: Lung bases are clear. Heart size is normal. Urinary system: Both kidneys are normal in size. No kidney stones. No hydronephrosis or perinephric fat stranding. Both ureters appear non-dilated throughout their expected courses. The bladder is decompressed. No calcified bladder stones. Other solid organs: There is impressive hepatic steatosis. Probable small hemangioma in the right lobe measuring approximately 1.8 cm. Gallbladder is unremarkable. Pancreas is normal in contours. Spleen is normal in size. No adrenal nodules. Peritoneum and bowel: Unenhanced bowel loops demonstrate normal wall thickness and caliber. No free fluid or air. Nodes and vessels: No retroperitoneal or mesenteric adenopathy by size criteria. Aorta and inferior vena cava are normal in caliber. Abdominal wall: No ventral hernias. Pelvis: No free pelvic fluid. No inguinal hernias or adenopathy. Bones: No suspicious bony lesions. No vertebral body compression fractures. IMPRESSION: 1. No evidence of renal stone or ureteral stone or hydronephrosis. 2. Impressive hepatic steatosis. 3. Probable small right lobe liver hemangioma. Dictated by: Urban Queen M.D. on 09/10/2018 at 20:54 Approved by: Urban Queen M.D. on 09/10/2018 at 20:58 ECG Data Interpretation: Normal sinus rhythm, rate 70, OH interval 180, QTC 406, no ST depression or ST elevation, no T-wave a normal T, no ectopy. EKG was also viewed by Dr. Sánchez. [facility] Narrative Medical decision making narrative: Differential includes renal calculi that was passed before CT, loin pain hematuria syndrome, UTI, and back spasm (due to exam, CT findings negative for stone, urinalysis positive for blood in and small amount of bacteria, blood work negative for sepsis or renal dysfunction, obesity-which can contribute to possibility of back spams). Very low suspicion for AAA as aorta was visualized on CT. Low suspicion for fracture due to lack of trauma in the history. Low suspicion for appendicitis or pancreatitis due to normal lab findings and normal abdominal exam. Low suspicion for urinary tension due to bladder scan having low volume 24. Patient was given Valium to attempt to treat as a muscle spasm, she was also given a script for antibiotics if she still is having symptoms in the morning and or developed dysuria she may take this. She was notified that she will be called in 2 days to be alerted of the results of her urine culture. Strict return precautions were given to the patient and follow-up instructions discussed. She was also notified of her significant hepatic portal hypertension that was found on the CT. <Franklin Sánchez, DO - Last Filed: 09/11/18 00:21> Lab Data Lab Results 09/10/18 09/10/18 09/10/18 Range/Units 20:25 20:45 20:45 WBC 9.4 (4.5-11.0) X10^3/uL RBC 5.18 (4.0-5.2) X10^6/uL Hgb 13.5 (12.0-16.0) g/dL Hct 41.1 (36-46) % MCV 79.4 L (80-100) fL MCH 26.0 (26-34) PG MCHC 32.8 (30-36) % RDW 13.4 (11.6-14.8) % Plt Count 466 H (150-400) X10^3/uL Neut % (Auto) 64.5 (50-75) % Lymph % (Auto) 24.5 L (25-40) % [place] % (Auto) 8.3 (3-14) % Eos % (Auto) 1.7 L (2-4) % Baso % (Auto) 1.0 (0-2) % Neut # (Auto) 6100 (2107-1828) /uL Lymph # (Auto) 2300 (5938-6097) /uL [place] # (Auto) 800 (0-900) /uL Eos # (Auto) 200 (0-450) /uL Baso # (Auto) 100 (0-100) /uL Sodium 141 (137-145) mmol/L Potassium 3.8 (3.4-5.1) mmol/L Chloride 101 (98-107) mmol/L Carbon Dioxide 27 (22-32) mmol/L BUN 16 (7-17) mg/dL Creatinine 0.70 (0.52-1.04) mg/dL Estimated GFR > 60.0 (>60) mL/min BUN/Creatinine Ratio 22.9 H (6-22) Glucose 105 H (70-100) mg/dL Calcium 9.4 (8.4-10.2) mg/dL Total Bilirubin 0.4 (0.2-1.3) mg/dL AST 32 (14-36) IU/L ALT 51 (9-52) IU/L Alkaline Phosphatase 100 (38-126) U/L Total Creatine Kinase 54 (30-135) U/L CK-MB (CK-2) TNP CK-MB (CK-2) Rel Index TNP Troponin I < 0.012 (0.01-0.034) ng/mL Total Protein 7.5 (6.3-8.2) g/dL Albumin 4.4 (3.5-5.0) g/dL Globulin 3.1 (1.7-4.1) g/dL Albumin/Globulin Ratio 1.4 (1.0-2.8) Lipase 53 (23-300) U/L Urine RBC (0-5/HPF) Urine WBC (0-5/HPF) Ur Squamous Epith Cells (0-5/HPF) Urine Bacteria (None) Hyaline Casts (None) Urine Mucus (Negative) Ur Culture Indicated? 09/10/18 Range/Units 21:15 WBC (4.5-11.0) X10^3/uL RBC (4.0-5.2) X10^6/uL Hgb (12.0-16.0) g/dL Hct (36-46) % MCV (80-100) fL MCH (26-34) PG MCHC (30-36) % RDW (11.6-14.8) % Plt Count (150-400) X10^3/uL Neut % (Auto) (50-75) % Lymph % (Auto) (25-40) % [place] % (Auto) (3-14) % Eos % (Auto) (2-4) % Baso % (Auto) (0-2) % Neut # (Auto) (3662-1601) /uL Lymph # (Auto) (7496-5235) /uL [place] # (Auto) (0-900) /uL Eos # (Auto) (0-450) /uL Baso # (Auto) (0-100) /uL Sodium (137-145) mmol/L Potassium (3.4-5.1) mmol/L Chloride (98-107) mmol/L Carbon Dioxide (22-32) mmol/L BUN (7-17) mg/dL Creatinine (0.52-1.04) mg/dL Estimated GFR (>60) mL/min BUN/Creatinine Ratio (6-22) Glucose (70-100) mg/dL Calcium (8.4-10.2) mg/dL Total Bilirubin (0.2-1.3) mg/dL AST (14-36) IU/L ALT (9-52) IU/L Alkaline Phosphatase (38-126) U/L Total Creatine Kinase (30-135) U/L CK-MB (CK-2) CK-MB (CK-2) Rel Index Troponin I (0.01-0.034) ng/mL Total Protein (6.3-8.2) g/dL Albumin (3.5-5.0) g/dL Globulin (1.7-4.1) g/dL Albumin/Globulin Ratio (1.0-2.8) Lipase (23-300) U/L Urine RBC 5-10/hpf H (0-5/HPF) Urine WBC 0-1/hpf (0-5/HPF) Ur Squamous Epith Cells 1-5 /hpf (0-5/HPF) Urine Bacteria Moderate (10-30) H (None) Hyaline Casts 0-1/lpf (None) Urine Mucus 2+ H (Negative) Ur Culture Indicated? Specimen cultured Point of care testing: Urine Dip Bedside Urine Glucose Negative Bedside Urine Bilirubin - Negative Bedside Urine Ketone - Negative Urine Specific [place] 1.030 Bedside Urine Occult Blood + Bedside Urine pH 5.5 Bedside Urine Protein +/- 15 Bedside Urine Urobilinogen +/- 1mg Bedside Urine Nitrite - Negative Bedside Urine Leukocytes - Negative Esterase Discharge Plan Departure Patient Disposition: Home Clinical Impression: Acute flank pain Hematuria Qualifiers: Hematuria type: unspecified type Qualified Code(s): R31.9 - Hematuria, unspecified Discharge Date/Time: 09/10/18 22:03 Interventions: ED Discharge Assessment Last Done: 09/10/18 22:03 Instructions: DI for Urinary Tract Infection (UTI), DI for Flank Pain, DI for Back Spasm Activity Restrictions/Additional Instructions: Thank you for entrusting me with your care today. As discussed, your CT did not show the reason for your pain but it did show a you had hepatic stenosis, I recommend following up with her primary care provider to discuss this further. Your blood work was negative for acute findings any urinalysis showed some blood and a little bacteria. I prescribed you an antibiotic, if you develop dysuria or continued pain tomorrow morning you may fill this complete the course. We will call you within 2 days about your urine culture. Return to the emergency department if he develops chest pain, shortness of breath, syncope, or high fevers. Prescriptions: New sulfamethoxazole-trimethoprim 800-160 mg tablet 1 tab PO BID 5 Days Qty: 10 RF: 0 No Action meclizine 25 mg tablet 25 mg PO TIDP PRN (Reason: dizziness) Qty: 90 RF: 2 hydroxyzine HCl 25 mg tablet 1 - 2 mg PO Q6HP PRN (Reason: anxiety) Qty: 30 RF: 1 lisinopril 20 mg tablet 20 mg PO DAILY Qty: 30 RF: 3 lamotrigine [Lamictal] 200 mg tablet 200 mg PO DAILY Qty: 90 RF: 1 ondansetron HCl [Zofran] 4 mg tablet 4 mg PO TID-QID PRN (Reason: nausea and vomiting) Qty: 30 RF: 5 Respironics DreamStation CPAP Qty: 1 RF: 0 Referrals: Kimberly Harp MD [Primary Care Provider] - <DO Elizabeth Spivey Last Filed: 09/11/18 00:21> Cosign ED Attending Sanjiv Attestation: I was available for consultation during this patient's emergency department encounter
[2018-09-10 20:51] LABS: Add Manual Diff / Slide Review NO; Basophils Absolute Auto 100 /uL (0-100); Eosinophils Absolute Auto 200 /uL (0-450); Eosinophils Percent Auto 1.7 % (2-4); Hematocrit 41.1 % (36-46); Hemoglobin 13.5 g/dL (12.0-16.0); Lymphocytes Absolute Auto 2300 /uL (1100-4500); Lymphocytes Percent Auto 24.5 % (25-40); Mean Corpuscular HGB Conc 32.8 % (30-36); Mean Corpuscular Volume 79.4 fL (80-100); Monocytes Absolute Auto 800 /uL (0-900); Monocytes Percent Auto 8.3 % (3-14); Neutrophils Absolute Auto 6100 /uL (1500-7000); Neutrophils Percent Auto 64.5 % (50-75); Platelet Count 466 X10^3/uL (150-400); Red Blood Cell Count 5.18 X10^6/uL (4.0-5.2); Red Cell Distribution Width 13.4 % (11.6-14.8); White Blood Cell Count 9.4 X10^3/uL (4.5-11.0)
[2018-09-10] MEDS: SODIUM CHLORIDE 0.9% 1,000 ML 1000 ML IV (20:55)
[2018-09-10] MEDS: KETOROLAC 60 MG/2 ML VIAL 30 MG IV (20:55)
[2018-09-10] MEDS: ONDANSETRON 4 MG/2 ML INJ IV (20:55)
[2018-09-10 21:18] LABS: Alanine Aminotransferase 51 IU/L (9-52); Albumin 4.4 g/dL (3.5-5.0); Albumin Globulin Ratio 1.4 (1.0-2.8); Alkaline Phosphatase 100 U/L (38-126); Aspartate Aminotransferase 32 IU/L (14-36); BUN Creatinine Ratio 22.9 (6-22); Bilirubin Total 0.4 mg/dL (0.2-1.3); Blood Urea Nitrogen 16 mg/dL (7-17); Calcium 9.4 mg/dL (8.4-10.2); Carbon Dioxide 27 mmol/L (22-32); Chloride 101 mmol/L (98-107); Estimated Glomerular Filt Rate > 60.0 mL/min (>60); Globulin 3.1 g/dL (1.7-4.1); Glucose 105 mg/dL (70-100); HEMOLYSIS < 15 (0-50); Lipase 53 U/L (23-300); Potassium 3.8 mmol/L (3.4-5.1); Sodium 141 mmol/L (137-145); Total Protein 7.5 g/dL (6.3-8.2)
[2018-09-10 21:29] LABS: Creatine Kinase 54 U/L (30-135)
[2018-09-10 21:34] VITALS: BP 134/79; PULSE 78; RESP 18; O2SAT 98
[2018-09-10 21:42] LABS: Troponin I < 0.012 ng/mL (0.01-0.034)
[2018-09-10 21:43] LABS: Bacteria Urine Moderate (10-30); Mucus Urine 2+ (Negative); RBC Urine 5-10/HPF (0-5/HPF); Squamous Epithelial Cell Urine 1-5 /HPF (0-5/HPF); WBC Urine 0-1/HPF (0-5/HPF)
[2018-09-10 21:44] LABS: Culture Indicated Urine Specimen Cultured; Hyaline Casts Urine 0-1/LPF
[2018-09-10] MEDS: diazePAM 5 MG TABLET 10 MG PO (21:50)
== END 2018-09-10 22:03 | disposition home or self-care (01) ==
PROVIDERS: Emergency Provider Nurse Practitioner; Family Provider Family Medicine; PCP Family Medicine
DX: R10.9 Unspecified abdominal pain (principal); R31.9 Hematuria, unspecified; R06.00 Dyspnea, unspecified
CPT/HCPCS: 74176; 80053; 81003; 81015; 82550; 83690; 84484; 85025; 87086; 93005; 96361; 96374; 96375; 99283; 99285; J1885; J2405

== ENCOUNTER → 2018-09-26 09:28 | Outpatient (CLI) | payer OTHER, MEDICAID, SELFPAY ==
[2018-09-26 12:26] LABS: Appearance Urine UA SL CLOUDY; Bilirubin Urine UA NEGATIVE (NEGATIVE); Color Urine UA YELLOW; Glucose Urine UA NEGATIVE (Negative); Ketones Urine UA NEGATIVE (NEGATIVE); Leukocyte Esterase Urine UA NEGATIVE (NEGATIVE); Nitrite Urine UA NEGATIVE (Negative); Occult Blood Urine UA TRACE-LYSED (Negative); Protein Urine UA NEGATIVE (Negative); Specific Gravity Urine UA >=1.030 (1.000-1.035); Urobilinogen Urine UA 0.2 E.U./dL (0.2)
[2018-09-26 13:05] LABS: Bacteria Urine Few (2-10); Culture Indicated Urine Cult Not Indicated; RBC Urine 0-1/HPF (0-5/HPF); Squamous Epithelial Cell Urine 5-10 /HPF (0-5/HPF); WBC Urine 1-5/HPF (0-5/HPF)
== END ==
PROVIDERS: Family Provider Family Medicine; PCP Family Medicine; Visit Provider Family Medicine
DX: R31.29 Other microscopic hematuria (principal)
CPT/HCPCS: 81001

== ENCOUNTER 2018-10-08 09:00 | Outpatient (RCR) | payer OTHER, MEDICAID, SELFPAY ==
--- NOTE | 2018-06-24 16:00 | PT.OIE ---
Current Diagnoses Dizziness and giddiness (06/24/18) Past Medical History (Last Reviewed 05/22/18 @ 04:30 by Franklin Sánchez DO) Insomnia (Chronic) Obstructive sleep apnea of adult (Chronic) Anxiety (Chronic 1999) CTS (carpal tunnel syndrome) (Chronic 2012) Chronic back pain (Chronic 1997) Foot pain (Chronic 1997) Hearing loss (Chronic 1975) History of heavy periods (Chronic 2000) Migraines (Chronic 1980) Painful menstrual periods (Chronic 2000) Endocrine problem (Resolved 2010) Gestational hypertension (Resolved 2010) History of recurrent ear infection (Resolved 1975) Infertility (Resolved 2009) MRSA infection (Resolved 2012) Plantar warts (Resolved 1999) Recurrent sinusitis (Resolved 1995) Ruptured tympanic membrane (Resolved 1975) Substance abuse (Resolved 1988) Past Surgical History (Last Reviewed 05/12/18 @ 21:11 by JAVY Enriquez) Anesthesia (Resolved) History of hand surgery (Resolved 2008) Status post delivery (Resolved 2010) Provider Visit Care Team Role Provider Type Kimberly Harp MD Attending Provider Physician Family Provider Primary Care Provider Specialty: Family Practice Address: [address] [place] [address] Email: [email or web address] Physical Therapy Initial Evaluation PT-OP-A Visit Information Start: 06/24/18 15:36 Freq: Status: Active Protocol: Document 06/24/18 14:30 BS (Rec: 06/24/18 15:52 BS [email or web address]) Out-Patient Physical Therapy Visit Information Visit Information Visit Type Initial Evaluation Visit Start Time 13:45 Visit Stop Time 14:15 Total Visit Minutes 30 Visit Number 1 Number of MAINTENANCE WORKER SWIMMING POOL Visits 0 Evaluation Information Evaluation Date 06/14/18 Precautions Precautions Pt reports nausea/vomitting with vertigo. PT-OP-B Current Condition Start: 06/24/18 15:36 Freq: Status: Active Protocol: Document 06/24/18 14:30 BS (Rec: 06/24/18 15:52 BS [email or web address]) Current Condition History of Current Condition Onset Date 2017 Current Complaints vertigo with nausea/vomitting History of Current Condition Pt complains of severe episodic dizziness, postural instability, and nausea/ vomiting that initially began last year with no apparent cause. She was doing laundry when she became lightheaded, diaphoretic, SOB, and dizzy which later progressed to nausea and vomiting leading her to admit to the ED. She has since has 2 more episodes of severe dizziness and nausea /vomiting that she describes as debillitating and resulting in falls without injury. The dizziness can last anywhere from 10 minutes up to days. She denies frequent migraines, headaches, or ear infections. Pt does report R hearing loss that she has had since having multiple ear infections as a child. No specific position brings on symptoms and pt states even when she is not having a severe episode, she constantly feels off and is slow with movement to avoid vertigo. She states that Meclizine has helped manage her symptoms and was initially taken PRN but recently started taking BID to manage symptoms. She has had to quit her job due to this issue and currently works side jobs as she is able. 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 Baseline Function- Recreation/Hobbies Pt able to go hiking and take care of her 2 sons. Current Functional Impairments (Reported) Functional Limitations- ADL's Pt reports all daily activities are limited when she is having vertigo. She states that she must lie in bed and not move when it is at its worst. Functional Limitations- Mobility/Gait Pt reports falls with ambulation when having dizziness and vertigo. Functional Limitations- Work/School Pt has quit her job due to her vertigo, nausea, and vomitting Functional Limitations- Recreation/ Pt reports she is unable to go Hobbies on hikes with her sons or engage in other recreational activities due to her vertigo. Personal Factors Other Personal Factors That May Effect PTSD, anxiety, depression, HTN Therapy/Recovery PT-OP-C Subjective Start: 06/24/18 15:36 Freq: Status: Active Protocol: Document 06/24/18 14:30 BS (Rec: 06/24/18 16:10 BS [email or web address]) Patient Questionnaires ABC- Activity Specific Balance Confidence Scale ABC Functional Impairment 60 to <80% Impaired (Score 21- 40) Dizziness Handicap Inventory DHI Functional Impairment 60 to 79% Impaired (Score 60- 79) OP-PT Pain Assessment Pain Assessment Grid Paper Pain Assessment Grid Completed Yes Location Hip Pain Location Details R hip Intensity 4 Scale Used Numeric (1 - 10) Back Pain Location Details Low back and upper back Intensity 4 Scale Used Numeric (1 - 10) PT-OP-J Posture/Palpation/Skin Start: 06/24/18 15:36 Freq: Status: Active Protocol: Document 06/24/18 14:30 BS (Rec: 06/24/18 16:08 BS [email or web address]) Posture Evaluation Position Sitting Evaluation View Anterior Head/C-Spine Posture Forward Head Shoulder Posture (L) Rounded (R) Rounded PT-OP-K Range of Motion Start: 06/24/18 15:36 Freq: Status: Active Protocol: Document 06/24/18 14:30 BS (Rec: 06/24/18 16:08 BS [email or web address]) Cervical Spine Range of Motion Cervical Spine Active Testing Position Sitting Comments Gross cervical AROM WFL, pt does report chronic neck pain and stiffness with bilateral rotation and sidebend. PT-OP-O Vestibular Start: 06/24/18 15:36 Freq: Status: Active Protocol: Document 06/24/18 14:30 BS (Rec: 06/24/18 16:08 BS [email or web address]) Vestibular Assessment Screening Tests Vestibular Artery Screen Negative Visual Testing Smooth Pursuits Horizontal Negative Smooth Pursuits Vertical Negative Saccades Horizontal Negative Convergence Test WNL Positional Testing [place]-Hallpike Negative Left Negative Right Rolling Test Negative Left Negative Right Supine to Sit Negative Sit to Supine Negative Vestibular Function Tests Fukuda Test Negative Comments Vestibular Comments Tragus test: negative bilaterally PT-OP-T Assessment and Plan Start: 06/24/18 15:36 Freq: Status: Active Protocol: Document 06/24/18 14:30 BS (Rec: 06/24/18 16:08 BS [email or web address]) Physical Therapy Assessment Rehab Potential Rehabilitation Potential Fair Evaluation Complexity Number of Personal Factors/Comorbidities 1-2 Number of Body Systems Impaired 1-2 Clinical Presentation at Evaluation Evolving Impairments Impairments Activity Tolerance Balance Functional Activities Functional Mobility Vestibular Other Concerns Barriers to Rehabilitation History of PTSD, anxiety, depression. Goals Two Short Term Goal (STG) Pt will tolerate at least 20 seconds of head turns without experiencing nausea. STG Duration 6 weeks Fpc Goal (LTG) Pt will ascend/descend 1 flight of stairs without fear of falling or postural instability. One Eyelet Cutter Goal (LTG) Activities-Specific Balance Scale score to improve to less than 60%, demonstrating improvements in dizziness symptoms and ability to perform ADLs without losing balance. LTG Duration 10 weeks Assessment Summary Assessment Laxmi is a 47 year old female who presents with complaints of severe episodic dizziness, nausea, vomiting, and postural instability resulting in falls without injury. Pt has had 3 severe episodes within the last year,2 of which resulted in ED admission. The dizziness can last from 10 minutes to days impacting her ability to complete activities of daily living, work, care for her 2 sons, and engage in recreational exercise. Pt denies frequent migraines, headaches and denies specific positional changes that evoke her dizziness. Testing for horizontal and posterior canal BPPV was negative bilaterally , no signs of nystagmus and pt asymptomatic. Pt plans to get brain MRI 07/01/18. Pt could benefit from being evaluated by an ENT to rule in/rule out Meniere's Disease. Will continue to monitor PT?s symptoms and treat impairments as appropriate with neuromuscular re-education and /or VOR training. Physical Therapy Plan Frequency and Duration Frequency of Treatment 1-2x/week Duration of Treatment 10 weeks Plan of Care Start Date 06/24/18 Plan of Care End Date 09/02/18 Therapeutic Interventions Therapeutic Interventions Balance Training Neuromuscular Re-education Patient/Caregiver Education Therapeutic Activities Therapeutic Exercises Vestibular Rehabilitation Next Visit Focus/Plan Next Note Type Treatment Note Next Visit Plan Screen BPPV, DVA, VOR testing as appropriate.
--- NOTE | 2018-06-24 16:03 | PT.OPPOC ---
Current Diagnoses Dizziness and giddiness (06/24/18) Provider Visit Care Team Role Provider Type Kimberly Harp MD Attending Provider Physician Family Provider Primary Care Provider Specialty: Family Practice Address: [address] [place] [address], [id number] Email: [email or web address] Plan Of Care PT-OP-T Assessment and Plan Start: 06/24/18 15:36 Freq: Status: Active Protocol: Document 06/24/18 14:30 BS (Rec: 06/24/18 16:08 BS [email or web address]) Physical Therapy Assessment Rehab Potential Rehabilitation Potential Fair Evaluation Complexity Number of Personal Factors/Comorbidities 1-2 Number of Body Systems Impaired 1-2 Clinical Presentation at Evaluation Evolving Impairments Impairments Activity Tolerance Balance Functional Activities Functional Mobility Vestibular Other Concerns Barriers to Rehabilitation History of PTSD, anxiety, depression. Goals Two Short Term Goal (STG) Pt will tolerate at least 20 seconds of head turns without experiencing nausea. STG Duration 6 weeks Boiler Or Engine Operator Goal (LTG) Pt will ascend/descend 1 flight of stairs without fear of falling or postural instability. One Boiler Or Engine Operator Goal (LTG) Activities-Specific Balance Scale score to improve to less than 60%, demonstrating improvements in dizziness symptoms and ability to perform ADLs without losing balance. LTG Duration 10 weeks Assessment Summary Assessment Laxmi is a 47 year old female who presents with complaints of severe episodic dizziness, nausea, vomiting, and postural instability resulting in falls without injury. Pt has had 3 severe episodes within the last year,2 of which resulted in ED admission. The dizziness can last from 10 minutes to days impacting her ability to complete activities of daily living, work, care for her 2 sons, and engage in recreational exercise. Pt denies frequent migraines, headaches and denies specific positional changes that evoke her dizziness. Testing for horizontal and posterior canal BPPV was negative bilaterally , no signs of nystagmus and pt asymptomatic. Pt plans to get brain MRI 07/01/18. Pt could benefit from being evaluated by an ENT to rule in/rule out Meniere's Disease. Will continue to monitor PT?s symptoms and treat impairments as appropriate with neuromuscular re-education and /or VOR training. Physical Therapy Plan Frequency and Duration Frequency of Treatment 1-2x/week Duration of Treatment 10 weeks Plan of Care Start Date 06/24/18 Plan of Care End Date 09/02/18 Therapeutic Interventions Therapeutic Interventions Balance Training Neuromuscular Re-education Patient/Caregiver Education Therapeutic Activities Therapeutic Exercises Vestibular Rehabilitation Next Visit Focus/Plan Next Note Type Treatment Note Next Visit Plan Screen BPPV, DVA, VOR testing as appropriate. Plan of Care Dates Plan of Care Start Date 06/24/18 Plan of Care End Date 09/02/18 Please Sign and Return: I have reviewed this Plan of Care and certify that the skilled therapy services above are required to meet the patient?s needs. Physician Signature Date Printed Name and Credentials Clinical Instructor Signature Printed Name and Credentials
--- NOTE | 2018-07-04 12:42 | PT.OTN ---
Current Diagnoses Dizziness and giddiness (07/04/18) Physical Therapy Treatment Note PT-OP-A Visit Information Start: 06/24/18 15:36 Freq: Status: Active Protocol: Document 07/04/18 11:15 AMB (Rec: 07/04/18 11:45 AMB [email or web address]) Out-Patient Physical Therapy Visit Information Visit Information Visit Type Treatment Note Visit Start Time 11:15 Visit Stop Time 12:00 Visit Number 2 PT-OP-B Current Condition Start: 06/24/18 15:36 Freq: Status: Active Protocol: Document 06/24/18 14:30 BS (Rec: 06/24/18 15:52 BS [email or web address]) Current Condition History of Current Condition Onset Date 2017 Current Complaints vertigo with nausea/vomitting History of Current Condition Pt complains of severe episodic dizziness, postural instability, and nausea/ vomiting that initially began last year with no apparent cause. She was doing laundry when she became lightheaded, diaphoretic, SOB, and dizzy which later progressed to nausea and vomiting leading her to admit to the ED. She has since has 2 more episodes of severe dizziness and nausea /vomiting that she describes as debillitating and resulting in falls without injury. The dizziness can last anywhere from 10 minutes up to days. She denies frequent migraines, headaches, or ear infections. Pt does report R hearing loss that she has had since having multiple ear infections as a child. No specific position brings on symptoms and pt states even when she is not having a severe episode, she constantly feels off and is slow with movement to avoid vertigo. She states that Meclizine has helped manage her symptoms and was initially taken PRN but recently started taking BID to manage symptoms. She has had to quit her job due to this issue and currently works side jobs as she is able. 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 Baseline Function- Recreation/Hobbies Pt able to go hiking and take care of her 2 sons. Current Functional Impairments (Reported) Functional Limitations- ADL's Pt reports all daily activities are limited when she is having vertigo. She states that she must lie in bed and not move when it is at its worst. Functional Limitations- Mobility/Gait Pt reports falls with ambulation when having dizziness and vertigo. Functional Limitations- Work/School Pt has quit her job due to her vertigo, nausea, and vomitting Functional Limitations- Recreation/ Pt reports she is unable to go Hobbies on hikes with her sons or engage in other recreational activities due to her vertigo. Personal Factors Other Personal Factors That May Effect PTSD, anxiety, depression, HTN Therapy/Recovery PT-OP-C Subjective Start: 06/24/18 15:36 Freq: Status: Active Protocol: Document 07/04/18 11:15 AMB (Rec: 07/04/18 11:45 AMB [id number]) OP-PT Subjective Patient Comments Patient Comments Pt reports brain MRI was clear . PT-OP-J Posture/Palpation/Skin Start: 06/24/18 15:36 Freq: Status: Active Protocol: Document 06/24/18 14:30 BS (Rec: 06/24/18 16:08 BS [email or web address]) Posture Evaluation Position Sitting Evaluation View Anterior Head/C-Spine Posture Forward Head Shoulder Posture (L) Rounded (R) Rounded PT-OP-K Range of Motion Start: 06/24/18 15:36 Freq: Status: Active Protocol: Document 06/24/18 14:30 BS (Rec: 06/24/18 16:08 BS [email or web address]) Cervical Spine Range of Motion Cervical Spine Active Testing Position Sitting Comments Gross cervical AROM WFL, pt does report chronic neck pain and stiffness with bilateral rotation and sidebend. PT-OP-O Vestibular Start: 06/24/18 15:36 Freq: Status: Active Protocol: Document 06/24/18 14:30 BS (Rec: 06/24/18 16:08 BS [email or web address]) Vestibular Assessment Screening Tests Vestibular Artery Screen Negative Visual Testing Smooth Pursuits Horizontal Negative Smooth Pursuits Vertical Negative Saccades Horizontal Negative Convergence Test WNL Positional Testing [place]-Hallpike Negative Left Negative Right Rolling Test Negative Left Negative Right Supine to Sit Negative Sit to Supine Negative Vestibular Function Tests Fukuda Test Negative Comments Vestibular Comments Tragus test: negative bilaterally PT-OP-Q Treatments Start: 07/04/18 12:29 Freq: Status: Active Protocol: Document 07/04/18 11:15 AMB (Rec: 07/04/18 12:42 AMB [email or web address]) Neuro Re-Education Treatment Vestibular Rehabilitation X1 Viewing Details horizontal and vertical Background plain Distance From Target 3 feet Position WBOS Reps/Duration 30 Comments educated pt on not going so fast that she gets double vision, then tolerated better. PT-OP-T Assessment and Plan Start: 06/24/18 15:36 Freq: Status: Active Protocol: Document 07/04/18 11:15 AMB (Rec: 07/04/18 12:42 AMB [email or web address]) Physical Therapy Assessment Assessment Summary Assessment Checked DVA today. 5 line difference. Pt needs rest after each rep due to increased dizziness, but dizziness resolves quickly. Physical Therapy Plan Next Visit Focus/Plan Next Note Type Treatment Note Next Visit Plan Progress VOR training, follow up to see if pt has seen ENT.
--- NOTE | 2018-07-17 15:58 | PT.OTN ---
Current Diagnoses Dizziness and giddiness (07/17/18) Physical Therapy Treatment Note PT-OP-A Visit Information Start: 06/24/18 15:36 Freq: Status: Active Protocol: Document 07/17/18 13:00 AMB (Rec: 07/17/18 15:58 AMB [email or web address]) Out-Patient Physical Therapy Visit Information Visit Information Visit Type Treatment Note Visit Start Time 13:00 Visit Stop Time 13:45 Total Visit Minutes 45 Visit Number 3 PT-OP-B Current Condition Start: 06/24/18 15:36 Freq: Status: Active Protocol: Document 06/24/18 14:30 BS (Rec: 06/24/18 15:52 BS [email or web address]) Current Condition History of Current Condition Onset Date 2017 Current Complaints vertigo with nausea/vomitting History of Current Condition Pt complains of severe episodic dizziness, postural instability, and nausea/ vomiting that initially began last year with no apparent cause. She was doing laundry when she became lightheaded, diaphoretic, SOB, and dizzy which later progressed to nausea and vomiting leading her to admit to the ED. She has since has 2 more episodes of severe dizziness and nausea /vomiting that she describes as debillitating and resulting in falls without injury. The dizziness can last anywhere from 10 minutes up to days. She denies frequent migraines, headaches, or ear infections. Pt does report R hearing loss that she has had since having multiple ear infections as a child. No specific position brings on symptoms and pt states even when she is not having a severe episode, she constantly feels off and is slow with movement to avoid vertigo. She states that Meclizine has helped manage her symptoms and was initially taken PRN but recently started taking BID to manage symptoms. She has had to quit her job due to this issue and currently works side jobs as she is able. 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 Baseline Function- Recreation/Hobbies Pt able to go hiking and take care of her 2 sons. Current Functional Impairments (Reported) Functional Limitations- ADL's Pt reports all daily activities are limited when she is having vertigo. She states that she must lie in bed and not move when it is at its worst. Functional Limitations- Mobility/Gait Pt reports falls with ambulation when having dizziness and vertigo. Functional Limitations- Work/School Pt has quit her job due to her vertigo, nausea, and vomitting Functional Limitations- Recreation/ Pt reports she is unable to go Hobbies on hikes with her sons or engage in other recreational activities due to her vertigo. Personal Factors Other Personal Factors That May Effect PTSD, anxiety, depression, HTN Therapy/Recovery PT-OP-C Subjective Start: 06/24/18 15:36 Freq: Status: Active Protocol: Document 07/17/18 13:00 AMB (Rec: 07/17/18 15:58 AMB [email or web address]) OP-PT Subjective Patient Comments Patient Comments Pt states she will be seeing ENT Dr. Castillo next month and they were hoping to get notes from us. PT-OP-J Posture/Palpation/Skin Start: 06/24/18 15:36 Freq: Status: Active Protocol: Document 06/24/18 14:30 BS (Rec: 06/24/18 16:08 BS [email or web address]) Posture Evaluation Position Sitting Evaluation View Anterior Head/C-Spine Posture Forward Head Shoulder Posture (L) Rounded (R) Rounded PT-OP-K Range of Motion Start: 06/24/18 15:36 Freq: Status: Active Protocol: Document 06/24/18 14:30 BS (Rec: 06/24/18 16:08 BS [email or web address]) Cervical Spine Range of Motion Cervical Spine Active Testing Position Sitting Comments Gross cervical AROM WFL, pt does report chronic neck pain and stiffness with bilateral rotation and sidebend. PT-OP-O Vestibular Start: 06/24/18 15:36 Freq: Status: Active Protocol: Document 06/24/18 14:30 BS (Rec: 06/24/18 16:08 BS [email or web address]) Vestibular Assessment Screening Tests Vestibular Artery Screen Negative Visual Testing Smooth Pursuits Horizontal Negative Smooth Pursuits Vertical Negative Saccades Horizontal Negative Convergence Test WNL Positional Testing Jesus-Hallpike Negative Left Negative Right Rolling Test Negative Left Negative Right Supine to Sit Negative Sit to Supine Negative Vestibular Function Tests Fukuda Test Negative Comments Vestibular Comments Tragus test: negative bilaterally PT-OP-Q Treatments Start: 07/04/18 12:29 Freq: Status: Active Protocol: Document 07/17/18 13:00 AMB (Rec: 07/17/18 15:58 AMB [email or web address]) Neuro Re-Education Treatment Balance Activities 1 Details salmeron foam Comments EO, NBOS- difficult Vestibular Rehabilitation X1 Viewing Details horizontal and vertical Background plain Distance From Target 3 feet Position WBOS Reps/Duration 30 Comments educated pt on not going so fast that she gets double vision, then tolerated better. Canalithic Repositioning BPPV Treatment Becky Affected Canal(s) L Comments no obvious nystagmus, but more symptoms on the L- pt tolerated well PT-OP-T Assessment and Plan Start: 06/24/18 15:36 Freq: Status: Active Protocol: Document 07/17/18 13:00 AMB (Rec: 07/17/18 15:58 AMB [email or web address]) Physical Therapy Assessment Assessment Summary Assessment Pt with new onset dizziness with rolling over in bed for past week. Pt just took meclizine, so not obvious nystagmus with supine roll or Jesus-Hallpike, but more symptomatic on L with [place]- Hallpike. Pt overall more symptomatic today. Physical Therapy Plan Next Visit Focus/Plan Next Note Type Treatment Note Next Visit Plan Progress VOR training, follow up with dizziness with rolling over
--- NOTE | 2018-08-21 16:30 | PT.OTN ---
Current Diagnoses Dizziness and giddiness (08/21/18) Physical Therapy Treatment Note PT-OP-A Visit Information Start: 06/24/18 15:36 Freq: Status: Active Protocol: Document 08/21/18 13:45 AMB (Rec: 08/21/18 14:09 AMB [id number]) Out-Patient Physical Therapy Visit Information Visit Information Visit Type Treatment Note Visit Start Time 13:45 Visit Stop Time 14:30 Total Visit Minutes 45 Visit Number 4 PT-OP-B Current Condition Start: 06/24/18 15:36 Freq: Status: Active Protocol: Document 06/24/18 14:30 BS (Rec: 06/24/18 15:52 BS [email or web address]) Current Condition History of Current Condition Onset Date 2017 Current Complaints vertigo with nausea/vomitting History of Current Condition Pt complains of severe episodic dizziness, postural instability, and nausea/ vomiting that initially began last year with no apparent cause. She was doing laundry when she became lightheaded, diaphoretic, SOB, and dizzy which later progressed to nausea and vomiting leading her to admit to the ED. She has since has 2 more episodes of severe dizziness and nausea /vomiting that she describes as debillitating and resulting in falls without injury. The dizziness can last anywhere from 10 minutes up to days. She denies frequent migraines, headaches, or ear infections. Pt does report R hearing loss that she has had since having multiple ear infections as a child. No specific position brings on symptoms and pt states even when she is not having a severe episode, she constantly feels off and is slow with movement to avoid vertigo. She states that Meclizine has helped manage her symptoms and was initially taken PRN but recently started taking BID to manage symptoms. She has had to quit her job due to this issue and currently works side jobs as she is able. 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 Baseline Function- Recreation/Hobbies Pt able to go hiking and take care of her 2 sons. Current Functional Impairments (Reported) Functional Limitations- ADL's Pt reports all daily activities are limited when she is having vertigo. She states that she must lie in bed and not move when it is at its worst. Functional Limitations- Mobility/Gait Pt reports falls with ambulation when having dizziness and vertigo. Functional Limitations- Work/School Pt has quit her job due to her vertigo, nausea, and vomitting Functional Limitations- Recreation/ Pt reports she is unable to go Hobbies on hikes with her sons or engage in other recreational activities due to her vertigo. Personal Factors Other Personal Factors That May Effect PTSD, anxiety, depression, HTN Therapy/Recovery PT-OP-C Subjective Start: 06/24/18 15:36 Freq: Status: Active Protocol: Document 08/21/18 13:45 AMB (Rec: 08/21/18 14:09 AMB [id number]) OP-PT Subjective Patient Comments Patient Comments Pt states she did the VNG and seeing Dr. Castillo next week for a hearing test and to discuss the results of her tests. PT-OP-J Posture/Palpation/Skin Start: 06/24/18 15:36 Freq: Status: Active Protocol: Document 06/24/18 14:30 BS (Rec: 06/24/18 16:08 BS [email or web address]) Posture Evaluation Position Sitting Evaluation View Anterior Head/C-Spine Posture Forward Head Shoulder Posture (L) Rounded (R) Rounded PT-OP-K Range of Motion Start: 06/24/18 15:36 Freq: Status: Active Protocol: Document 06/24/18 14:30 BS (Rec: 06/24/18 16:08 BS [email or web address]) Cervical Spine Range of Motion Cervical Spine Active Testing Position Sitting Comments Gross cervical AROM WFL, pt does report chronic neck pain and stiffness with bilateral rotation and sidebend. PT-OP-O Vestibular Start: 06/24/18 15:36 Freq: Status: Active Protocol: Document 06/24/18 14:30 BS (Rec: 06/24/18 16:08 BS [email or web address]) Vestibular Assessment Screening Tests Vestibular Artery Screen Negative Visual Testing Smooth Pursuits Horizontal Negative Smooth Pursuits Vertical Negative Saccades Horizontal Negative Convergence Test WNL Positional Testing Pierce-Hallpike Negative Left Negative Right Rolling Test Negative Left Negative Right Supine to Sit Negative Sit to Supine Negative Vestibular Function Tests Fukuda Test Negative Comments Vestibular Comments Tragus test: negative bilaterally PT-OP-Q Treatments Start: 07/04/18 12:29 Freq: Status: Active Protocol: Document 08/21/18 13:45 AMB (Rec: 08/21/18 16:30 AMB [email or web address]) Neuro Re-Education Treatment Balance Activities 3 Details walking with head turns Comments horizontal, vertical and diagonal Vestibular Rehabilitation X2 Viewing Details horizontal Reps/Duration 30x2 X1 Viewing Details horizontal and vertical Background complex Distance From Target 3 feet Position WBOS Reps/Duration 2 min ea Other Activities 1 Details 3 step and bow Reps/Duration 10 Comments with and without head turn PT-OP-T Assessment and Plan Start: 06/24/18 15:36 Freq: Status: Active Protocol: Document 08/21/18 13:45 AMB (Rec: 08/21/18 16:30 AMB [email or web address]) Physical Therapy Assessment Assessment Summary Assessment Hope has been pretty symptomatic lately, more of an all the time feeling like the world is shifting but not necessarily swimming. She has been doing her VOR exercises at home, up to 10 min, but still slow. Will make plans to follow up after she sees ENT next week. Physical Therapy Plan Next Visit Focus/Plan Next Note Type Treatment Note Next Visit Plan Progress VOR training, follow up with dizziness with rolling over
--- NOTE | 2018-10-08 16:33 | PT.OTN ---
Current Diagnoses Dizziness and giddiness (10/08/18) Physical Therapy Treatment Note PT-OP-A Visit Information Start: 06/24/18 15:36 Freq: Status: Active Protocol: Document 10/08/18 09:00 AMB (Rec: 10/08/18 09:24 AMB [id number]) Out-Patient Physical Therapy Visit Information Visit Information Visit Type Treatment Note Visit Start Time 09:00 Visit Stop Time 09:45 Total Visit Minutes 45 Visit Number 5 PT-OP-B Current Condition Start: 06/24/18 15:36 Freq: Status: Active Protocol: Document 06/24/18 14:30 BS (Rec: 06/24/18 15:52 BS [email or web address]) Current Condition History of Current Condition Onset Date 2017 Current Complaints vertigo with nausea/vomitting History of Current Condition Pt complains of severe episodic dizziness, postural instability, and nausea/ vomiting that initially began last year with no apparent cause. She was doing laundry when she became lightheaded, diaphoretic, SOB, and dizzy which later progressed to nausea and vomiting leading her to admit to the ED. She has since has 2 more episodes of severe dizziness and nausea /vomiting that she describes as debillitating and resulting in falls without injury. The dizziness can last anywhere from 10 minutes up to days. She denies frequent migraines, headaches, or ear infections. Pt does report R hearing loss that she has had since having multiple ear infections as a child. No specific position brings on symptoms and pt states even when she is not having a severe episode, she constantly feels off and is slow with movement to avoid vertigo. She states that Meclizine has helped manage her symptoms and was initially taken PRN but recently started taking BID to manage symptoms. She has had to quit her job due to this issue and currently works side jobs as she is able. 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 Baseline Function- Recreation/Hobbies Pt able to go hiking and take care of her 2 sons. Current Functional Impairments (Reported) Functional Limitations- ADL's Pt reports all daily activities are limited when she is having vertigo. She states that she must lie in bed and not move when it is at its worst. Functional Limitations- Mobility/Gait Pt reports falls with ambulation when having dizziness and vertigo. Functional Limitations- Work/School Pt has quit her job due to her vertigo, nausea, and vomitting Functional Limitations- Recreation/ Pt reports she is unable to go Hobbies on hikes with her sons or engage in other recreational activities due to her vertigo. Personal Factors Other Personal Factors That May Effect PTSD, anxiety, depression, HTN Therapy/Recovery PT-OP-C Subjective Start: 06/24/18 15:36 Freq: Status: Active Protocol: Document 10/08/18 09:00 AMB (Rec: 10/08/18 09:24 AMB [id number]) OP-PT Subjective Patient Comments Patient Comments Pt states she has thyroid nodules and is getting a biopsy. PT-OP-J Posture/Palpation/Skin Start: 06/24/18 15:36 Freq: Status: Active Protocol: Document 06/24/18 14:30 BS (Rec: 06/24/18 16:08 BS [email or web address]) Posture Evaluation Position Sitting Evaluation View Anterior Head/C-Spine Posture Forward Head Shoulder Posture (L) Rounded (R) Rounded PT-OP-K Range of Motion Start: 06/24/18 15:36 Freq: Status: Active Protocol: Document 06/24/18 14:30 BS (Rec: 06/24/18 16:08 BS [email or web address]) Cervical Spine Range of Motion Cervical Spine Active Testing Position Sitting Comments Gross cervical AROM WFL, pt does report chronic neck pain and stiffness with bilateral rotation and sidebend. PT-OP-O Vestibular Start: 06/24/18 15:36 Freq: Status: Active Protocol: Document 06/24/18 14:30 BS (Rec: 06/24/18 16:08 BS [email or web address]) Vestibular Assessment Screening Tests Vestibular Artery Screen Negative Visual Testing Smooth Pursuits Horizontal Negative Smooth Pursuits Vertical Negative Saccades Horizontal Negative Convergence Test WNL Positional Testing [place]-Hallpike Negative Left Negative Right Rolling Test Negative Left Negative Right Supine to Sit Negative Sit to Supine Negative Vestibular Function Tests Fukuda Test Negative Comments Vestibular Comments Tragus test: negative bilaterally PT-OP-Q Treatments Start: 07/04/18 12:29 Freq: Status: Active Protocol: Document 10/08/18 09:00 AMB (Rec: 10/08/18 16:31 AMB [email or web address]) Neuro Re-Education Treatment Vestibular Rehabilitation X2 Viewing Details horizontal Reps/Duration 30x2 X1 Viewing Details horizontal and vertical Background complex Distance From Target 3 feet Position WBOS Comments educated to avoid on bad days PT-OP-T Assessment and Plan Start: 06/24/18 15:36 Freq: Status: Active Protocol: Document 10/08/18 09:00 AMB (Rec: 10/08/18 16:31 AMB [email or web address]) Physical Therapy Assessment Goals Two Short Term Goal (STG) Pt will tolerate at least 20 seconds of head turns without experiencing nausea. STG Duration 6 weeks Label Stamper Goal (LTG) Pt will ascend/descend 1 flight of stairs without fear of falling or postural instability. One Residential Goal (LTG) Activities-Specific Balance Scale score to improve to less than 60%, demonstrating improvements in dizziness symptoms and ability to perform ADLs without losing balance. LTG Duration 10 weeks Assessment Summary Assessment Hope returns to PT with new medical diagnosis and is going to be getting thyroid biopsy soon. This may be accounting for a lot of her dizziness, so we will put her on hold for now until she is stable after her thyroid procedures and then further assess her dizziness at that time. Physical Therapy Plan Frequency and Duration Frequency of Treatment 1x/Week Duration of Treatment 10 weeks Plan of Care Start Date 10/08/18 Plan of Care End Date 12/17/18 Therapeutic Interventions Therapeutic Interventions Balance Training Neuromuscular Re-education Patient/Caregiver Education Therapeutic Activities Therapeutic Exercises Vestibular Rehabilitation Next Visit Focus/Plan Next Visit Plan Pt is getting thyroid biopsy and then possibly more surgery , so will be on hold until stable from that, will then need to re-evaluate her dizziness to see if it has fully resolved with thyroid issues or if she continues to have vestibular migraine sx.
--- NOTE | 2018-10-08 16:33 | PT.OPPOC ---
Current Diagnoses Dizziness and giddiness (10/08/18) Provider Visit Care Team Role Provider Type Kimberly Harp MD Attending Provider Physician Family Provider Primary Care Provider Specialty: Family Practice Address: [address] [place] [address], [id number] Email: [email or web address] Plan Of Care PT-OP-T Assessment and Plan Start: 06/24/18 15:36 Freq: Status: Active Protocol: Document 10/08/18 09:00 AMB (Rec: 10/08/18 16:31 AMB [email or web address]) Physical Therapy Assessment Goals Two Short Term Goal (STG) Pt will tolerate at least 20 seconds of head turns without experiencing nausea. STG Duration 6 weeks Detention Goal (LTG) Pt will ascend/descend 1 flight of stairs without fear of falling or postural instability. One Detention Goal (LTG) Activities-Specific Balance Scale score to improve to less than 60%, demonstrating improvements in dizziness symptoms and ability to perform ADLs without losing balance. LTG Duration 10 weeks Assessment Summary Assessment Hope returns to PT with new medical diagnosis and is going to be getting thyroid biopsy soon. This may be accounting for a lot of her dizziness, so we will put her on hold for now until she is stable after her thyroid procedures and then further assess her dizziness at that time. Physical Therapy Plan Frequency and Duration Frequency of Treatment 1x/Week Duration of Treatment 10 weeks Plan of Care Start Date 10/08/18 Plan of Care End Date 12/17/18 Therapeutic Interventions Therapeutic Interventions Balance Training Neuromuscular Re-education Patient/Caregiver Education Therapeutic Activities Therapeutic Exercises Vestibular Rehabilitation Next Visit Focus/Plan Next Visit Plan Pt is getting thyroid biopsy and then possibly more surgery , so will be on hold until stable from that, will then need to re-evaluate her dizziness to see if it has fully resolved with thyroid issues or if she continues to have vestibular migraine sx. Plan of Care Dates Plan of Care Start Date 10/08/18 Plan of Care End Date 12/17/18 Please Sign and Return: I have reviewed this Plan of Care and certify that the skilled therapy services above are required to meet the patient?s needs. Physician Signature Date Printed Name and Credentials Clinical Instructor Signature Printed Name and Credentials
--- NOTE | 2019-01-16 11:12 | PT-OP ANOTE ---
Pt no showed her appointment on 01/16, called and left voicemail reminding patient of 3 no show and discharge policy, as this was her second no show.
--- NOTE | 2019-01-30 09:22 | PT-OP ANOTE ---
Called Laxmi and left voicemail stating that we are canceling her remaining appointments and if we do not hear back from her in the next few days I will discharge her account due to her no showing 3 appointments.
--- NOTE | 2019-02-19 09:29 | PT.OPDS ---
Current Diagnoses Dizziness and giddiness (10/08/18) Visit Care Team Role Provider Type Kimberly Harp MD Attending Provider Physician Family Provider Primary Care Provider Specialty: Family Practice Address: [address] [place] [address], [facility], [place], [address] Email: [email or web address] Visit Number Visit Number 5 Discharge Summary PT-OP-B Current Condition Start: 06/24/18 15:36 Freq: Status: Active Protocol: Document 06/24/18 14:30 BS (Rec: 06/24/18 15:52 BS [email or web address]) Current Condition History of Current Condition Onset Date 2017 Current Complaints vertigo with nausea/vomitting History of Current Condition Pt complains of severe episodic dizziness, postural instability, and nausea/ vomiting that initially began last year with no apparent cause. She was doing laundry when she became lightheaded, diaphoretic, SOB, and dizzy which later progressed to nausea and vomiting leading her to admit to the ED. She has since has 2 more episodes of severe dizziness and nausea /vomiting that she describes as debillitating and resulting in falls without injury. The dizziness can last anywhere from 10 minutes up to days. She denies frequent migraines, headaches, or ear infections. Pt does report R hearing loss that she has had since having multiple ear infections as a child. No specific position brings on symptoms and pt states even when she is not having a severe episode, she constantly feels off and is slow with movement to avoid vertigo. She states that Meclizine has helped manage her symptoms and was initially taken PRN but recently started taking BID to manage symptoms. She has had to quit her job due to this issue and currently works side jobs as she is able. 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 Baseline Function- Recreation/Hobbies Pt able to go hiking and take care of her 2 sons. Current Functional Impairments (Reported) Functional Limitations- ADL's Pt reports all daily activities are limited when she is having vertigo. She states that she must lie in bed and not move when it is at its worst. Functional Limitations- Mobility/Gait Pt reports falls with ambulation when having dizziness and vertigo. Functional Limitations- Work/School Pt has quit her job due to her vertigo, nausea, and vomitting Functional Limitations- Recreation/ Pt reports she is unable to go Hobbies on hikes with her sons or engage in other recreational activities due to her vertigo. Personal Factors Other Personal Factors That May Effect PTSD, anxiety, depression, HTN Therapy/Recovery PT-OP-C Subjective Start: 06/24/18 15:36 Freq: Status: Active Protocol: Document 10/08/18 09:00 AMB (Rec: 10/08/18 09:24 AMB [id number]) OP-PT Subjective Patient Comments Patient Comments Pt states she has thyroid nodules and is getting a biopsy. PT-OP-J Posture/Palpation/Skin Start: 06/24/18 15:36 Freq: Status: Active Protocol: Document 06/24/18 14:30 BS (Rec: 06/24/18 16:08 BS [email or web address]) Posture Evaluation Position Sitting Evaluation View Anterior Head/C-Spine Posture Forward Head Shoulder Posture (L) Rounded,(R) Rounded PT-OP-K Range of Motion Start: 06/24/18 15:36 Freq: Status: Active Protocol: Document 06/24/18 14:30 BS (Rec: 06/24/18 16:08 BS [email or web address]) Cervical Spine Range of Motion Cervical Spine Active Testing Position Sitting Comments Gross cervical AROM WFL, pt does report chronic neck pain and stiffness with bilateral rotation and sidebend. PT-OP-O Vestibular Start: 06/24/18 15:36 Freq: Status: Active Protocol: Document 06/24/18 14:30 BS (Rec: 06/24/18 16:08 BS [email or web address]) Vestibular Assessment Screening Tests Vestibular Artery Screen Negative Visual Testing Smooth Pursuits Horizontal Negative Smooth Pursuits Vertical Negative Saccades Horizontal Negative Convergence Test WNL Positional Testing [place]-Hallpike Negative Left,Negative Right Rolling Test Negative Left,Negative Right Supine to Sit Negative Sit to Supine Negative Vestibular Function Tests Fukuda Test Negative Comments Vestibular Comments Tragus test: negative bilaterally PT-OP-T Assessment and Plan Start: 06/24/18 15:36 Freq: Status: Active Protocol: Document 02/19/19 09:24 AMB (Rec: 02/19/19 09:28 AMB [email or web address]) Physical Therapy Assessment Assessment Summary Assessment Laxmi attended 5 visits of PT between May and September 2018. She had multiple medical tests and then rescheduled but no showed 2 appointments therefore she is discharged. At the time of discharge she had been diagnosed with vestibular migraines. She had been educated in a vestibular HEP that she should be continuing with as she can. Physical Therapy Plan Discharge Physical Therapy Discharge Reasons No Longer Attending PT
== END 2019-02-23 11:40 ==
LOC: PHYS 09:00
PROVIDERS: Family Provider Family Medicine; PCP Family Medicine; Visit Provider Family Medicine
DX: R42 Dizziness and giddiness (principal)
CPT/HCPCS: 97112; 97162

== ENCOUNTER → 2019-04-04 13:38 | Outpatient (CLI) | payer OTHER, MEDICAID, SELFPAY | PROVIDERS: Family Provider Family Medicine; PCP Family Medicine; Visit Provider Physician Assistant | DX: R31.9 Hematuria, unspecified (principal) | CPT/HCPCS: 87077; 87086; 87186 ==

== ENCOUNTER 2020-10-04 17:20 | Emergency (ER) | payer OTHER, MEDICAID, SELFPAY ==
[2020-10-04 17:25] VITALS: BP 139/84; PULSE 76; RESP 18; TEMP 36.7; O2SAT 97; BMI 41.5
--- NOTE | 2020-10-04 17:38 | DI.RAD.S_ITS ---
PROCEDURE: XR CHEST 1V INDICATIONS: chest pain TECHNIQUE: One view of the chest was acquired. COMPARISON: [facility], CR, XR CHEST 1V, 05/21/2018, 17:51. FINDINGS: Surgical changes and devices: None. Lungs and pleura: Lungs are clear. No pleural effusions or pneumothorax. Mediastinum: Mediastinal contours appear normal. Heart size is normal. Bones and chest wall: No suspicious bony lesions. Overlying soft tissues appear unremarkable. IMPRESSION: No acute cardiopulmonary abnormality. Dictated by: Maynor Cespedes M.D. on 10/04/2020 at 17:59 Approved by: Maynor Cespedes M.D. on 10/04/2020 at 18:01
[2020-10-04 17:59] LABS: COVID19 -Nasal RAPID Negative (Negative)
[2020-10-04 18:01] LABS: Add Manual Diff / Slide Review NO; Basophils Absolute Auto 100 /uL (0-100); Basophils Percent Auto 0.8 % (0-2); Eosinophils Absolute Auto 200 /uL (0-450); Eosinophils Percent Auto 1.6 % (2-4); Hematocrit 40.9 % (36-46); Hemoglobin 13.5 g/dL (12.0-16.0); Lymphocytes Absolute Auto 2300 /uL (1100-4500); Lymphocytes Percent Auto 22.9 % (25-40); Mean Corpuscular HGB Conc 33.1 % (30-36); Mean Corpuscular Volume 78.4 fL (80-100); Monocytes Absolute Auto 700 /uL (0-900); Monocytes Percent Auto 7.2 % (3-14); Neutrophils Absolute Auto 6700 /uL (1500-7000); Neutrophils Percent Auto 67.5 % (50-75); Platelet Count 440 X10^3/uL (150-400); Red Blood Cell Count 5.21 X10^6/uL (4.0-5.2); Red Cell Distribution Width 13.2 % (11.6-14.8); White Blood Cell Count 9.9 X10^3/uL (4.5-11.0)
[2020-10-04 18:12] LABS: Alanine Aminotransferase 39 IU/L (<35); Albumin 4.3 g/dL (3.5-5.0); Albumin Globulin Ratio 1.2 (1.0-2.8); Alkaline Phosphatase 110 U/L (38-126); Aspartate Aminotransferase 31 IU/L (14-36); BUN Creatinine Ratio 16.4 (6-22); Bilirubin Total 0.4 mg/dL (0.2-1.3); Blood Urea Nitrogen 9 mg/dL (7-17); Calcium 9.5 mg/dL (8.4-10.2); Carbon Dioxide 26 mmol/L (22-32); Chloride 103 mmol/L (98-107); Creatine Kinase 54 U/L (30-135); Estimated Glomerular Filt Rate > 60.0 mL/min (>60); Globulin 3.6 g/dL (1.7-4.1); Glucose 96 mg/dL (70-100); HEMOLYSIS < 15 (0-50); Lipase 46 U/L (23-300); Potassium 4.1 mmol/L (3.4-5.1); Sodium 137 mmol/L (137-145); Total Protein 7.9 g/dL (6.3-8.2)
[2020-10-04 18:24] LABS: Troponin I < 0.012 ng/mL (0.01-0.034)
[2020-10-04] MEDS: KETOROLAC 30 MG/ML VIAL IV (18:54)
[2020-10-04 19:21] LABS: D Dimer < 200 ng/mL (<230)
--- NOTE | 2020-10-04 19:40 | ED.SOB ---
HPI - SOB/Dyspnea <Felipa Mauricio, MARKETING ASSISTANT MANAGER-BC - Last Filed: 10/04/20 19:50> General Chief Complaint: Shortness of Breath/Dyspnea Stated Complaint: PAIN WHEN BREATHING/DIZZY Time Seen by Provider: 10/04/20 18:37 Source: patient Mode of arrival: Ambulatory Limitations: no limitations History of Present Illness HPI Narrative: The patient is a 49-year-old female former smoker with history of bronchitis who presents with a chief complaint of chest pain for the past 3 days. She states it is constant, worse when she coughs or takes a deep breath. She states she has had a dry nonproductive slight cough for 3 days. She denies any fevers muscle aches or chills. She states she has a history of severe anxiety and wonders if this is related to it. She has not taken anything to feel better. She is fully vaccinated against coronavirus, denies any coronavirus contacts. Related Data Home Medications Medication Instructions Recorded Confirmed Respironics DreamStation CPAP #1 ea 05/09/18 05/05/19 Previous Rx's Medication Instructions Recorded ondansetron HCl 4 mg tablet 4 mg PO TID-QID PRN #30 tab 09/01/18 (Zofran) meclizine 25 mg tablet 25 mg PO TIDP PRN #90 tab 09/23/18 hydroxyzine HCl 25 mg tablet 25 mg PO TID-QID PRN #30 tab 10/14/18 rizatriptan 10 mg disintegrating See Rx Instructions PO .COMPLEX 10/21/18 tablet #12 tab verapamil 120 mg tablet,extended 120 mg PO DAILY #60 tab 10/21/18 release zolpidem 10 mg tablet 10 mg PO BEDTIME PRN #30 tab 10/30/18 losartan 50 mg tablet 50 mg PO DAILY #30 tab 11/12/18 lurasidone 40 mg tablet (Latuda) See Rx Instructions PO DAILY #60 11/12/18 tab lorazepam 1 mg tablet 1 mg PO BID-TID PRN #30 tab 01/09/19 albuterol sulfate 90 mcg/actuation 2 puff INHALATION Q4-6H PRN #8.5 05/05/19 aerosol inhaler gram benzonatate 100 mg capsule 100 mg PO BID PRN #30 cap 05/05/19 (Tessalon Wes) ketorolac 10 mg tablet 10 mg PO TID PRN #14 tab 10/04/20 Allergies Allergy/AdvReac Type Severity Reaction Status Date / Time morphine [MORPHINE] Allergy Unknown Verified 10/04/20 17:31 Opioids - Morphine Analogues Allergy Unknown Verified 10/04/20 17:31 [OPIOIDS - MORPHINE ANALOGUES] Opioids-Meperidine and Allergy Unknown Verified 10/04/20 17:31 Related [OPIOIDS-MEPERIDINE AND RELATED] Opioids-Methadone and Related Allergy Unknown Verified 10/04/20 17:31 [OPIOIDS-METHADONE AND RELATED] Review of Systems <BEBA Lagos - Last Filed: 10/04/20 19:50> Review of Systems Narrative: GENERAL: Denies chills, fatigue, malaise, fever, sweats. HEENT: Denies sinus pain, ear pain, sore throat, difficulty swallowing, dizziness. RESPIRATORY: See HPI CARDIOVASCULAR: See HPI GASTROINTESTINAL: Denies nausea, vomiting, abdominal pain, diarrhea, constipation, melena. : Denies dysuria, frequency, incontinence, hematuria, urinary retention. MUSCULOSKELETAL: denies weakness, joint pain, or bony pain SKIN: Denies rash, skin lesions, or other NEUROLOGIC: Denies weakness, headache, numbness, change in speech, confusion, seizures, incoordination. PSYCHIATRIC: No concerning psychosocial issues. 12 point review of systems is negative except for those stated above Patient History <BEBA Lagos - Last Filed: 10/04/20 19:50> Medical History (Updated 10/04/20 @ 19:46 by BEBA Lagos) Anxiety (1999) Bipolar 2 disorder Bronchitis Chronic back pain (1997) CTS (carpal tunnel syndrome) (2012) Endocrine problem (2010) Foot pain (1997) Gestational hypertension (2010) Hearing loss (1975) History of heavy periods (2000) History of recurrent ear infection (1975) Infertility (2009) Insomnia Migraines (1980) Morbid obesity MRSA infection (2012) Obstructive sleep apnea of adult Painful menstrual periods (2000) Plantar warts (1999) Recurrent sinusitis (1995) Ruptured tympanic membrane (1975) Substance abuse (1988) Surgical History Anesthesia History of hand surgery (2008) Status post delivery (2010) Family History Father Age: 76 MS (multiple sclerosis) Heart disease Hypertension Mother Age: 77 Anxiety Depression Mental health problem Thyroid cancer Hypertension Grandfather Bladder cancer Grandmother Stroke Grandmother No problems noted. Social History pets and animals: No education level: college seatbelt use: always water heater temp set < 120 deg: Yes working smoke detector in home: Yes fire extinguisher in home: Yes carbon monox detector in home: Yes firearms in home: No Smoking Status: Former smoker Tobacco: How many years used: 24 quit status: quit date established substance use type: former substance user, crack/cocaine and amphetamines during the past year weight has: increased > 10 lbs well-balanced diet: daily or most days daily servings fruits/ve-1 caffeine: Yes (1-2 caffeine drinks per day, rare/occasional carbonated beverages) eating out: rarely or never additional social history: Significant hearing loss Smoking Status: Former smoker alcohol intake frequency: holidays/special occasions only Substance Use Type: does not use Exam <Felipa Mauricio, MARKETING ASSISTANT MANAGER-BC - Last Filed: 10/04/20 19:50> Narrative Exam Narrative: GENERAL: This is a well-nourished, well-developed patient, in no acute distress HEAD: Atraumatic. Normocephalic. No temporal or scalp tenderness. EYES: Pupils equal round and reactive. Extraocular motions intact. No scleral icterus. No injection or drainage. ENT: Nose without bleeding, purulent drainage or septal hematoma. Wearing a mask. Airway patent. NECK: Trachea midline. No JVD or lymphadenopathy. Supple, nontender, no meningeal signs. CARDIOVASCULAR: Regular rate and rhythm RESPIRATORY: Clear to auscultation. Breath sounds equal bilaterally. No wheezes, rales, or rhonchi. Occasional dry cough. No increased respiratory effort. No accessory muscle use. Speaking full sentences. EXTREMITIES: No clubbing, cyanosis, or edema. No joint tenderness, effusion, or edema noted. BACK: Nontender without deformity or crepitance. No flank tenderness. NEURO: AOx3. SKIN: No rash or erythema on visible skin Initial Vital Signs Initial Vital Signs: Vital Signs Temperature 98.1 F 10/04/20 17:25 Pulse Rate 76 10/04/20 17:25 Respiratory Rate 18 10/04/20 17:25 Blood Pressure 139/84 10/04/20 17:25 Pulse Oximetry 97 10/04/20 17:25 <Julio Cesar Myers DO - Last Filed: 10/05/20 02:45> Initial Vital Signs Initial Vital Signs: Vital Signs Temperature 98.1 F 10/04/20 17:25 Pulse Rate 76 10/04/20 17:25 Respiratory Rate 18 10/04/20 17:25 Blood Pressure 139/84 10/04/20 17:25 Pulse Oximetry 97 10/04/20 17:25 Scores <BEBA Lagos - Last Filed: 10/04/20 19:50> GCS Artis coma scale eye opening: Spontaneous Artis coma scale verbal response: Orientated Artis coma scale motor response: Obey commands Artis coma scale total score: 15 <Julio Cesar Myers DO - Last Filed: 10/05/20 02:45> GCS Salcha coma scale total score: 15 Course <BEBA Lagos - Last Filed: 10/04/20 19:50> Orders Ordered: ED Orders 10/04/20 17:51 Complete Blood Count AUTO DIFF Stat Comprehensive Metabolic Panel Stat D Dimer Stat Lipase Stat Troponin & CK Cardiac Panel Stat 10/04/20 18:07 EKG-12 Lead Stat Discontinued Medications Ketorolac Tromethamine (Ketorolac 30 Mg/Ml Vial) 30 mg IV NOW ONE Stop: 10/04/20 18:51 Last Admin: 10/04/20 18:54 Dose: 30 mg Documented by: CRUZITO Vital Signs Vital signs: Vital Signs - 8 hr 10/04/20 19:57 Pulse Rate 78 Respiratory Rate 16 Blood Pressure 130/80 Pulse Oximetry 97 <Julio Cesar Myers DO - Last Filed: 10/05/20 02:45> Orders Ordered: ED Orders 10/04/20 17:51 Complete Blood Count AUTO DIFF Stat Comprehensive Metabolic Panel Stat D Dimer Stat Lipase Stat Troponin & CK Cardiac Panel Stat 10/04/20 18:07 EKG-12 Lead Stat Discontinued Medications Ketorolac Tromethamine (Ketorolac 30 Mg/Ml Vial) 30 mg IV NOW ONE Stop: 10/04/20 18:51 Last Admin: 10/04/20 18:54 Dose: 30 mg Documented by: CRUZITO Vital Signs Vital signs: Vital Signs - 8 hr 10/04/20 19:57 Pulse Rate 78 Respiratory Rate 16 Blood Pressure 130/80 Pulse Oximetry 97 MDM - SOB/Dyspnea <DENISE Lagos- - Last Filed: 10/04/20 19:50> Lab Data Attestation: I reviewed the patient's lab results. Result diagrams: 10/04/20 17:51 10/04/20 17:51 Labs: Lab Results 10/04/20 10/04/20 10/04/20 Range/Units 17:32 17:51 17:51 WBC 9.9 (4.5-11.0) X10^3/uL RBC 5.21 H (4.0-5.2) X10^6/uL Hgb 13.5 (12.0-16.0) g/dL Hct 40.9 (36-46) % MCV 78.4 L (80-100) fL MCH 26.0 (26-34) PG MCHC 33.1 (30-36) % RDW 13.2 (11.6-14.8) % Plt Count 440 H (150-400) X10^3/uL Neut % (Auto) 67.5 (50-75) % Lymph % (Auto) 22.9 L (25-40) % [place] % (Auto) 7.2 (3-14) % Eos % (Auto) 1.6 L (2-4) % Baso % (Auto) 0.8 (0-2) % Neut # (Auto) 6700 (9484-6954) /uL Lymph # (Auto) 2300 (1486-4376) /uL [place] # (Auto) 700 (0-900) /uL Eos # (Auto) 200 (0-450) /uL Baso # (Auto) 100 (0-100) /uL D-Dimer (<230) ng/mL Sodium 137 (137-145) mmol/L Potassium 4.1 (3.4-5.1) mmol/L Chloride 103 (98-107) mmol/L Carbon Dioxide 26 (22-32) mmol/L BUN 9 (7-17) mg/dL Creatinine 0.55 (0.52-1.04) mg/dL Estimated GFR > 60.0 (>60) mL/min BUN/Creatinine Ratio 16.4 (6-22) Glucose 96 (70-100) mg/dL Calcium 9.5 (8.4-10.2) mg/dL Total Bilirubin 0.4 (0.2-1.3) mg/dL AST 31 (14-36) IU/L ALT 39 H (<35) IU/L Alkaline Phosphatase 110 (38-126) U/L Total Creatine Kinase 54 (30-135) U/L CK-MB (CK-2) TNP CK-MB (CK-2) Rel Index TNP Troponin I < 0.012 (0.01-0.034) ng/mL Total Protein 7.9 (6.3-8.2) g/dL Albumin 4.3 (3.5-5.0) g/dL Globulin 3.6 (1.7-4.1) g/dL Albumin/Globulin Ratio 1.2 (1.0-2.8) Lipase 46 (23-300) U/L SARS-CoV-2 (PCR) Negative (Negative) 10/04/20 Range/Units 17:51 WBC (4.5-11.0) X10^3/uL RBC (4.0-5.2) X10^6/uL Hgb (12.0-16.0) g/dL Hct (36-46) % MCV (80-100) fL MCH (26-34) PG MCHC (30-36) % RDW (11.6-14.8) % Plt Count (150-400) X10^3/uL Neut % (Auto) (50-75) % Lymph % (Auto) (25-40) % [place] % (Auto) (3-14) % Eos % (Auto) (2-4) % Baso % (Auto) (0-2) % Neut # (Auto) (0408-1213) /uL Lymph # (Auto) (5821-5181) /uL [place] # (Auto) (0-900) /uL Eos # (Auto) (0-450) /uL Baso # (Auto) (0-100) /uL D-Dimer < 200 (<230) ng/mL Sodium (137-145) mmol/L Potassium (3.4-5.1) mmol/L Chloride (98-107) mmol/L Carbon Dioxide (22-32) mmol/L BUN (7-17) mg/dL Creatinine (0.52-1.04) mg/dL Estimated GFR (>60) mL/min BUN/Creatinine Ratio (6-22) Glucose (70-100) mg/dL Calcium (8.4-10.2) mg/dL Total Bilirubin (0.2-1.3) mg/dL AST (14-36) IU/L ALT (<35) IU/L Alkaline Phosphatase (38-126) U/L Total Creatine Kinase (30-135) U/L CK-MB (CK-2) CK-MB (CK-2) Rel Index Troponin I (0.01-0.034) ng/mL Total Protein (6.3-8.2) g/dL Albumin (3.5-5.0) g/dL Globulin (1.7-4.1) g/dL Albumin/Globulin Ratio (1.0-2.8) Lipase (23-300) U/L SARS-CoV-2 (PCR) (Negative) Imaging Data Chest x-ray: Radiologist's Impression: [address] [id number] ReportSigned Patient: Laxmi Jovel AMR#: [id number]: 1970Acct:[id number]/Sex: 49 / FDate of Service: 10/04/20Loc: EDAccession Number: [id number] Procedure: XR chest 1V Ordering Provider: Franklin Sánchez D.O. PROCEDURE: XR CHEST 1V INDICATIONS: chest pain TECHNIQUE: One view of the chest was acquired. COMPARISON: Located Within [facility], , XR CHEST 1V, 05/21/2018, 17:51. FINDINGS: Surgical changes and devices: None. Lungs and pleura: Lungs are clear. No pleural effusions or pneumothorax. Mediastinum: Mediastinal contours appear normal. Heart size is normal. Bones and chest wall: No suspicious bony lesions. Overlying soft tissues appear unremarkable. IMPRESSION: No acute cardiopulmonary abnormality. Dictated by: Maynor Cespedes M.D. on 10/04/2020 at 17:59 Approved by: Maynor Cespedes M.D. on 10/04/2020 at 18:01 ECG Data Attestation: I personally reviewed and interpreted this ECG as follows: Interpretation: Normal sinus rhythm. Ventricular rate 71. P.r. interval 182. QRS 88. Viewed by Dr. Princess OMER Narrative Medical decision making narrative: The patient is a 49-year-old female with history of anxiety who presents with a chief complaint of chest pain for the past 3 days that she believes is anxiety. Her initial troponin is negative, considered ordering a repeat troponin however she has been having chest pain for 3 days so I would expect a positive troponin at this point. D-dimer was completed to evaluate for possible pulmonary embolism, this resulted negative. Patient has had a slight cough over the past few days, coronavirus test is negative, chest x-ray is negative as well. She was given a single dose of Toradol and felt much improved. Other lab work is reassuring with no leukocytosis and normal renal function. I discussed at length the importance of follow-up with primary care provider in the next few days as well as strict ER return precautions for severe chest pain shortness of breath etcetera. Patient has no questions or concerns upon discharge states understanding return precautions as well as follow-up care. She has appeared very well and nontoxic throughout her stay in the emergency department. <Julio Cesar Myers, DO - Last Filed: 10/05/20 02:45> Lab Data Labs: Lab Results 10/04/20 10/04/20 10/04/20 Range/Units 17:32 17:51 17:51 WBC 9.9 (4.5-11.0) X10^3/uL RBC 5.21 H (4.0-5.2) X10^6/uL Hgb 13.5 (12.0-16.0) g/dL Hct 40.9 (36-46) % MCV 78.4 L (80-100) fL MCH 26.0 (26-34) PG MCHC 33.1 (30-36) % RDW 13.2 (11.6-14.8) % Plt Count 440 H (150-400) X10^3/uL Neut % (Auto) 67.5 (50-75) % Lymph % (Auto) 22.9 L (25-40) % [place] % (Auto) 7.2 (3-14) % Eos % (Auto) 1.6 L (2-4) % Baso % (Auto) 0.8 (0-2) % Neut # (Auto) 6700 (9427-8257) /uL Lymph # (Auto) 2300 (6847-2562) /uL [place] # (Auto) 700 (0-900) /uL Eos # (Auto) 200 (0-450) /uL Baso # (Auto) 100 (0-100) /uL D-Dimer (<230) ng/mL Sodium 137 (137-145) mmol/L Potassium 4.1 (3.4-5.1) mmol/L Chloride 103 (98-107) mmol/L Carbon Dioxide 26 (22-32) mmol/L BUN 9 (7-17) mg/dL Creatinine 0.55 (0.52-1.04) mg/dL Estimated GFR > 60.0 (>60) mL/min BUN/Creatinine Ratio 16.4 (6-22) Glucose 96 (70-100) mg/dL Calcium 9.5 (8.4-10.2) mg/dL Total Bilirubin 0.4 (0.2-1.3) mg/dL AST 31 (14-36) IU/L ALT 39 H (<35) IU/L Alkaline Phosphatase 110 (38-126) U/L Total Creatine Kinase 54 (30-135) U/L CK-MB (CK-2) TNP CK-MB (CK-2) Rel Index TNP Troponin I < 0.012 (0.01-0.034) ng/mL Total Protein 7.9 (6.3-8.2) g/dL Albumin 4.3 (3.5-5.0) g/dL Globulin 3.6 (1.7-4.1) g/dL Albumin/Globulin Ratio 1.2 (1.0-2.8) Lipase 46 (23-300) U/L SARS-CoV-2 (PCR) Negative (Negative) 10/04/20 Range/Units 17:51 WBC (4.5-11.0) X10^3/uL RBC (4.0-5.2) X10^6/uL Hgb (12.0-16.0) g/dL Hct (36-46) % MCV (80-100) fL MCH (26-34) PG MCHC (30-36) % RDW (11.6-14.8) % Plt Count (150-400) X10^3/uL Neut % (Auto) (50-75) % Lymph % (Auto) (25-40) % [place] % (Auto) (3-14) % Eos % (Auto) (2-4) % Baso % (Auto) (0-2) % Neut # (Auto) (0632-5481) /uL Lymph # (Auto) (5895-0259) /uL [place] # (Auto) (0-900) /uL Eos # (Auto) (0-450) /uL Baso # (Auto) (0-100) /uL D-Dimer < 200 (<230) ng/mL Sodium (137-145) mmol/L Potassium (3.4-5.1) mmol/L Chloride (98-107) mmol/L Carbon Dioxide (22-32) mmol/L BUN (7-17) mg/dL Creatinine (0.52-1.04) mg/dL Estimated GFR (>60) mL/min BUN/Creatinine Ratio (6-22) Glucose (70-100) mg/dL Calcium (8.4-10.2) mg/dL Total Bilirubin (0.2-1.3) mg/dL AST (14-36) IU/L ALT (<35) IU/L Alkaline Phosphatase (38-126) U/L Total Creatine Kinase (30-135) U/L CK-MB (CK-2) CK-MB (CK-2) Rel Index Troponin I (0.01-0.034) ng/mL Total Protein (6.3-8.2) g/dL Albumin (3.5-5.0) g/dL Globulin (1.7-4.1) g/dL Albumin/Globulin Ratio (1.0-2.8) Lipase (23-300) U/L SARS-CoV-2 (PCR) (Negative) Discharge Plan Departure Patient Disposition: Home Clinical Impression: Chest pain, atypical Instructions: DI for Cough -- Adult, DI for Atypical Chest Pain, DI for Chest Pain Activity Restrictions/Additional Instructions: Thank you for trusting us with your care today. As discussed, your evaluation was very reassuring with normal chest x-ray, negative troponin and negative D-dimer. However the Toradol that we gave you was very helpful for your pain, so I sent a prescription of this to [email or web address] [facility] This is an NSAID. Please do not combine with any other NSAIDs such as ibuprofen Aleve etcetera. Take it with food. As discussed, please come back to emergency department for any acute concerns. Please follow-up with primary care provider in the next few days. Prescriptions: New ketorolac 10 mg tablet 10 mg PO TID PRN (Reason: pain) Qty: 14 RF: 0 No Action zolpidem 10 mg tablet 10 mg PO BEDTIME PRN (Reason: insomnia) Qty: 30 RF: 0 Latuda 40 mg tablet See Rx Instructions PO DAILY Qty: 60 RF: 5 losartan 50 mg tablet 50 mg PO DAILY Qty: 30 RF: 12 benzonatate [Tessalon Perles] 100 mg capsule 100 mg PO BID PRN (Reason: cough) Qty: 30 RF: 0 albuterol sulfate 90 mcg/actuation HFA aerosol inhaler 2 puff INHALATION Q4-6H PRN (Reason: bronchospasm) Qty: 8.5 RF: 0 ondansetron HCl [Zofran] 4 mg tablet 4 mg PO TID-QID PRN (Reason: nausea and vomiting) Qty: 30 RF: 5 meclizine 25 mg tablet 25 mg PO TIDP PRN (Reason: dizziness) Qty: 90 RF: 2 hydroxyzine HCl 25 mg tablet 25 mg PO TID-QID PRN (Reason: anxiety) Qty: 30 RF: 0 lorazepam 1 mg tablet 1 mg PO BID-TID PRN (Reason: anxiety) Qty: 30 RF: 0 rizatriptan 10 mg tablet,disintegrating See Rx Instructions PO .COMPLEX Qty: 12 RF: 2 verapamil 120 mg tablet extended release 120 mg PO DAILY Qty: 60 RF: 2 (DME) Respironics DreamStation CPAP Qty: 1 RF: 0 Referrals: Kimberly Harp MD [Primary Care Provider] - <Julio Cesar Myers DO - Last Filed: 10/05/20 02:45> [facility] ED Attending Russellature Attestation: I was immediately available in the department for consultation. This documentation has been reviewed and I agree with assessment and plan. Supervised by Julio Cesar Myers DO
[2020-10-04 19:57] VITALS: BP 130/80; PULSE 78; RESP 16; O2SAT 97
== END 2020-10-04 19:57 | disposition home or self-care (01) ==
PROVIDERS: Emergency Medicine; Emergency Provider Nurse Practitioner Family; Family Provider Family Medicine; PCP Family Medicine
DX: R07.89 Other chest pain (principal); R05 Cough; Z20.822 Contact with and (suspected) exposure to COVID-19
CPT/HCPCS: 36415; 71045; 80053; 82550; 83690; 84484; 85025; 85379; 87635; 93005; 96374; 99284; C9803; J1885

== ENCOUNTER → 2021-01-23 10:05 | Outpatient (CLI) | payer OTHER, MEDICAID, SELFPAY ==
[2021-01-23 13:07] LABS: COVID19 -Nasal RAPID Negative (Negative)
== END ==
PROVIDERS: Family Provider Family Medicine; PCP Family Medicine; Visit Provider Physician Assistant
DX: R05.9 Cough, unspecified (principal); R09.81 Nasal congestion
CPT/HCPCS: 87635

== ENCOUNTER → 2021-05-22 10:22 | Outpatient (CLI) | payer OTHER, MEDICAID, SELFPAY ==
--- NOTE | 2021-05-22 10:24 | DI.US.S_ITS ---
PROCEDURE: US ABDOMEN COMPLETE INDICATIONS: abdominal pain TECHNIQUE: Real-time scanning was performed of the abdominal and retroperitoneal organs, with image documentation. COMPARISON: [facility], CT, CT KIDNEY URETER BLADDER (KUB), 09/10/2018, 20:29. FINDINGS: Liver: Liver is normal in size and diffusely increased in echogenicity with posterior acoustic attenuation. No surface nodularity is seen. Gallbladder: Multiple tiny echogenic shadowing calculi are seen in the gallbladder. No gallbladder wall thickening or pericholecystic fluid. Patient notes some tenderness during exam. Biliary ducts: Intrahepatic bile ducts are non-dilated. Extrahepatic bile duct caliber measures 4 mm. Normal is 6-7 mm or less in diameter, or 10 mm or less post-cholecystectomy. Pancreas: Visualized portions of the pancreas are sonographically normal. Spleen: Spleen is normal in size and homogeneous in echotexture. Kidneys: Kidneys are normal in size and echotexture. Right kidney measures 10.8 cm long; left kidney measures 11.8 cm long. No hydronephrosis or nephrolithiasis. No solid masses. Aorta: Visualized aorta is normal in caliber at less than 3 cm. Iliacs: Proximal common iliac arteries are normal in caliber at less than 2.5 cm. IVC: Intrahepatic inferior vena cava is patent. Miscellaneous: No free abdominal fluid. IMPRESSION: 1. Diffusely increased hepatic echogenicity is seen with posterior acoustic attenuation, most commonly secondary to diffuse hepatic steatosis but other sources of hepatocellular disease cannot be excluded. Recommend clinical correlation. Previously seen probable hemangioma in the right hepatic lobe is not seen sonographically. 2. Cholelithiasis without gallbladder wall thickening or pericholecystic fluid. Possible positive sonographic Islas sign of uncertain significance. Dictated by: Maynor Cespedes M.D. on 05/22/2021 at 13:58 Approved by: Maynor Cespedes M.D. on 05/22/2021 at 14:03
[2021-05-22 12:18] LABS: Add Manual Diff / Slide Review NO; Basophils Absolute Auto 0 /uL (0-100); Basophils Percent Auto 0.3 % (0-2); Eosinophils Absolute Auto 200 /uL (0-450); Eosinophils Percent Auto 2.2 % (2-4); Hematocrit 40.4 % (36-46); Hemoglobin 13.4 g/dL (12.0-16.0); Lymphocytes Absolute Auto 1700 /uL (1100-4500); Lymphocytes Percent Auto 23.6 % (25-40); Mean Corpuscular HGB Conc 33.1 % (30-36); Mean Corpuscular Hemoglobin 26.2 PG (26-34); Mean Corpuscular Volume 79.1 fL (80-100); Monocytes Absolute Auto 400 /uL (0-900); Monocytes Percent Auto 6.3 % (3-14); Neutrophils Absolute Auto 4700 /uL (1500-7000); Neutrophils Percent Auto 67.6 % (50-75); Platelet Count 451 X10^3/uL (150-400); Red Blood Cell Count 5.11 X10^6/uL (4.0-5.2); Red Cell Distribution Width 13.7 % (11.6-14.8)
[2021-05-22 12:38] LABS: Hemoglobin A1C% w Est Avg Glu 6.2 % (4.0-6.0)
[2021-05-22 12:56] LABS: Alanine Aminotransferase 45 IU/L (<35); Albumin 4.5 g/dL (3.5-5.0); Albumin Globulin Ratio 1.3 (1.0-2.8); Alkaline Phosphatase 104 U/L (38-126); Aspartate Aminotransferase 37 IU/L (14-36); BUN Creatinine Ratio 18.3 (6-22); Bilirubin Total 0.6 mg/dL (0.2-1.3); Blood Urea Nitrogen 11 mg/dL (7-17); Calcium 9.2 mg/dL (8.4-10.2); Carbon Dioxide 25 mmol/L (22-32); Chloride 102 mmol/L (98-107); Cholesterol 298 mg/dL (140-199); Estimated Glomerular Filt Rate > 60.0 mL/min (>60); Gamma Glutamyl Transpeptidase 35 U/L (12-43); Globulin 3.4 g/dL (1.7-4.1); Glucose 97 mg/dL (70-100); HDL Cholesterol 43 mg/dL (40-60); HEMOLYSIS < 15 (0-50); LDL Cholesterol Calculated 207 mg/dL (<100); Lipase 48 U/L (23-300); Potassium 4.2 mmol/L (3.4-5.1); Sodium 137 mmol/L (137-145); Total Protein 7.9 g/dL (6.3-8.2); Triglycerides 239 mg/dL (35-150)
[2021-05-22 13:15] LABS: Creatinine Urine Random 222.6 mg/dL
[2021-05-22 13:21] LABS: Microalbumi Creatinin Ratio Ur 6.7 ug/mg CR (<30); Microalbumin Urine Random 1.5 mg/dL (0-1.6)
== END ==
PROVIDERS: Family Provider Family Medicine; PCP Family Medicine; Referring Provider Family Medicine; Visit Provider Family Medicine
DX: R10.9 Unspecified abdominal pain (principal); I10 Essential (primary) hypertension; E66.9 Obesity, unspecified; K80.20 Calculus of gallbladder without cholecystitis without obstruction
CPT/HCPCS: 36415; 76700; 80053; 80061; 82043; 82570; 82977; 83036; 83690; 85025

== ENCOUNTER → 2021-06-19 10:40 | Outpatient (CLI) | payer OTHER, MEDICAID, SELFPAY ==
[2021-06-19 13:46] LABS: COVID19 -Nasal RAPID Negative (Negative)
== END ==
PROVIDERS: Family Provider Family Medicine; PCP Family Medicine; Visit Provider Surgery
DX: Z20.822 Contact with and (suspected) exposure to COVID-19; Z01.812 Encounter for preprocedural laboratory examination
CPT/HCPCS: 87635; C9803

== ENCOUNTER 2021-06-20 11:48 | Day surgery (SDC) | payer OTHER, MEDICAID, SELFPAY ==
[2021-06-20] VITALS (11 sets, daily range): BP systolic 136–164; BP diastolic 67–95; PULSE 58–92; RESP 10–18; TEMP 36.6–37.3; O2SAT 93–100; BMI 40.7
--- NOTE | 2021-06-20 | PATH_ITS ---
[facility] Accession Number: [id number] . 01 Material submitted: . gallbladder - GALLBLADDER . 02 Diagnosis: Gallbladder, Cholecystectomy: Chronic cholecystitis with cholelithiasis and cholesterolosis. Negative for dysplasia nd malignancy. MRV 06/26/2021 1545 Local . 02 Electronically signed: . Radha Messer MD, Pathologist NPI- [id number] . 01 Gross description: . The specimen is received in formalin, labeled gallbladder, and consists of a disrupted gallbladder measuring 5.9 x 2.7 x 1.5 cm, 0.3 cm average wall thickness. There is a transmural disruption measuring 0.3 cm, involving the serosa of the fundus. The uninvolved serosa and hepatic bed (inked blue) are grossly unremarkable. The cystic duct is blocked by an aggregate of yellow calculi measuring 4.3 x 1.7 x 0.5 cm in aggregate, and has a diameter of 0.3 cm. The mucosa is moderately trabeculated, bile stained, and has pale yellow stippling. The gallbladder also contains a moderate amount of viscous bile. The specimen is representatively submitted as follows: . A1: Fundus, neck, and hepatic bed with cystic duct margin en face. ([id number]) /MRV 06/21/2021 1500 Local . 02 Pathologist provided ICD-10: K80.60 . 02 CPT . 870688 Specimen Comment: A courtesy copy of this report has been sent to [phone] Performed at: 01 [facility] [address] [place] [address], [place], [place] [id number] MD Jamal Brand MD Phone: [phone] Performed at: 02 [facility] [place] [address] [place] [id number] MD Radha Messer MD Phone: [phone]
[2021-06-20] MEDS: LACTATED RINGERS 1,000 ML 42 ML IV ×2 (12:18→14:12)
--- NOTE | 2021-06-20 13:12 | PM.PREOP ---
Pre-operative Note Interval Note History & Physical reviewed/Exam performed by Physician: Yes Changes to H&P: No
[2021-06-20] MEDS: BUPIVACAINE 0.25% (PF) VIAL 30 ML INJ (14:13)
--- NOTE | 2021-06-20 14:16 | SUR.OPER ---
Supine on padded OR bed, head on pillow, safety belt at thigh, left arm padded and tucked at side. Right arm secured on padded arm board <90 degrees abduction. Legs uncrossed. Padded footboard in place. Tape over blanket to secure lower legs.
--- NOTE | 2021-06-20 14:53 | P.OP_ITS ---
Operative Date/Time/Diagnoses Date of procedure: 06/20/21 Time of procedure: 14:54 Pre-op diagnosis: Biliary colic Post-op diagnosis: same Procedure & Clinicians Procedure: Laparoscopic cholecystectomy Same procedure as scheduled: Yes Indications: Biliary colic Surgeon: Kobe Hinton Click Yes if Unassisted: Yes Operative Notes Findings: Critical view of safety established. No evidence of acute cholecystitis. Intrahepatic gallbladder. Closure Type: primary Specimen(s): other (Gallbladder) Estimated Blood Loss (mL): 20 Procedure in detail: The patient was placed supine on the table and bilateral lower extremity compression devices were applied. Anesthesia was induced they were intubated wi th an endotracheal tube and received 2g of Ancef. A time-out was performed. They were prepped and draped in sterile fashion. An infraumbilical incision was made, the umbilical stalk was elevated and the fascia was sharply incised entering the abdomen atraumatically. A blunt tip 12mm balloon trocar was then inserted, pneumoperitoneum was established and inspection of the abdomen demonstrated no evidence of injury. They were placed head up and right side up and then a 11 mm port was placed high in the epigastrium and two 5mm in the right upper quadrant. The gallbladder was intrahepatic in nature there was no evidence of acute cholecystitis. Gallbladder was grasped by the fundus and retracted over the liver and retracted laterally by the infundibulum. Using electrocautery the lateral plane between the gallbladder and the liver was opened towards the fundus. The gallbladder was then retracted laterally and the medial plane was developed in the same manner. With the gallbladder mobilized the bottom of the cystic plate was visualized. The hepatocystic triangle was meticulosly skeletonized using hook electrocautery of all fat and fibrous tissue from both the front and the back. Only two structures were then clearly seen entering the gallbladder the cystic duct and the cystic artery. With the critical view of safety fully established the cystic duct was clipped twice proximally and once distally using the 10 mm Weck hemo clip applied under direct visualization and then sharply divided. The cystic artery was divided in the same fashion. The gallbladder was removed from the liver bed using electro cautery. The liver bed was then inspected for hemostasis and this was achieved. The abdomen was irrigated with sterile saline and inspection was made that showed the clips in good position. The specimen was removed using Endo-Catch. The abdomen was desufflated. The umbilical fascia was closed with 0 Vicryl in a ywlzxa-ei-hktye fashion under direct visualization. Skin incisions were irrigated and closed with 4-0 Monocryl. 30 ml of 0.25% bupivacaine was infiltrated into the subcutaneous tissue of the incisions. The wounds were sealed with Dermabond. Patient emerged from anesthesia was extubated and transferred to recovery in stable condition. The sponge and instrument count at the end of the operation was correct. Complications: none Post-operative Condition: stable Disposition: same day surgery
[2021-06-20] MEDS: HYDROMORPHONE 2 MG INJ IV ×2 (15:16→15:23)
[2021-06-20] MEDS: ONDANSETRON 4 MG/2 ML INJ IV (15:16)
[2021-06-20] MEDS: HYDROMORPHONE 2 MG INJ 0.5 MG IV (15:40)
--- NOTE | 2021-06-20 15:50 | SUR.PHASEI ---
Patient sleeping, hand off report to Lazaro Castillo RN
[2021-06-20] MEDS: TRAMADOL 50 MG TABLET PO (16:03)
[2021-06-20] MEDS: OXYCODONE/ACETAMINOPHEN 5/325 TABLET 1 TAB PO ×2 (16:11→16:45)
== END 2021-06-20 17:26 | disposition home or self-care (01) ==
PROVIDERS: Family Provider Family Medicine; PCP Family Medicine; Referring Provider Surgery; Visit Provider Surgery
PROC: 0FT44ZZ Resection of Gallbladder, Percutaneous Endoscopic Approach (ICD-10-PCS; CPT 47562; principal; 2021-06-20 13:00)
DX: K80.10 Calculus of gallbladder with chronic cholecystitis without obstruction (principal); E66.9 Obesity, unspecified; I10 Essential (primary) hypertension; G47.33 Obstructive sleep apnea (adult) (pediatric); Z68.41 Body mass index [BMI] 40.0-44.9, adult
CPT/HCPCS: 47562; 82962; J0330; J1100; J1170; J2405; J2704; J3010

== ENCOUNTER → 2021-08-18 11:27 | Outpatient (CLI) | payer OTHER, MEDICAID, SELFPAY ==
[2021-08-18 13:20] LABS: Cholesterol 216 mg/dL (140-199); HDL Cholesterol 55 mg/dL (40-60); LDL Cholesterol Calculated 134 mg/dL (<100); Triglycerides 137 mg/dL (35-150)
== END ==
PROVIDERS: Family Provider Family Medicine; PCP Family Medicine; Referring Provider Family Medicine; Visit Provider Family Medicine
DX: E78.5 Hyperlipidemia, unspecified (principal)
CPT/HCPCS: 36415; 80061

== ENCOUNTER → 2022-06-21 11:35 | Outpatient (CLI) | payer OTHER, MEDICAID, SELFPAY ==
[2022-06-21 13:19] LABS: Alanine Aminotransferase 49 IU/L (<35); Albumin 4.3 g/dL (3.5-5.0); Albumin Globulin Ratio 1.3 (1.0-2.8); Alkaline Phosphatase 136 U/L (38-126); Aspartate Aminotransferase 34 IU/L (14-36); BUN Creatinine Ratio 10.8 (6-22); Bilirubin Total 0.8 mg/dL (0.2-1.3); Blood Urea Nitrogen 7 mg/dL (7-17); Calcium 9.8 mg/dL (8.4-10.2); Carbon Dioxide 30 mmol/L (22-32); Chloride 99 mmol/L (98-107); Cholesterol 193 mg/dL (140-199); Estimated Glomerular Filt Rate > 60 mL/min (>60); Globulin 3.2 g/dL (1.7-4.1); Glucose 91 mg/dL (70-100); HDL Cholesterol 54 mg/dL (40-60); HEMOLYSIS < 15 (0-50); LDL Cholesterol Calculated 113 mg/dL (<100); Potassium 4.8 mmol/L (3.4-5.1); Sodium 137 mmol/L (137-145); Total Protein 7.5 g/dL (6.3-8.2); Triglycerides 131 mg/dL (35-150)
[2022-06-21 14:35] LABS: Creatinine Urine Random 169.8 mg/dL
[2022-06-21 14:41] LABS: Microalbumi Creatinin Ratio Ur 4.1 ug/mg CR (<30); Microalbumin Urine Random 0.7 mg/dL (0-1.6)
[2022-06-22 09:34] LABS: x Labcorp Estim. Avg Glu (eAG) 140 mg/dL (.); x Labcorp Hemoglobin A1c 6.5 % (4.8-5.6)
== END ==
PROVIDERS: Family Provider Family Medicine; PCP Family Medicine; Referring Provider Family Medicine; Visit Provider Family Medicine
DX: I10 Essential (primary) hypertension (principal); Z86.32 Personal history of gestational diabetes
CPT/HCPCS: 36415; 80053; 80061; 82043; 82570; 83036

== ENCOUNTER → 2022-07-09 08:46 | Outpatient (CLI) | payer OTHER, MEDICAID, SELFPAY ==
--- NOTE | 2022-07-09 08:47 | DI.US.S_ITS ---
LIMITED ULTRASOUND OF LEFT BREAST: 07/09/2022 CLINICAL: Patient returns today to evaluate an asymmetry in the left breast. Comparison is made to exams dated: 07/09/2022 mammogram - [facility], 09/03/2020 mammogram - outside [facility], and 06/18/2017 mammogram - [facility]. Real-time ultrasound of the left breast 10-11 o'clock region was performed. Nogueira scale images of the real-time examination were reviewed. No significant abnormalities were seen sonographically in the left breast. IMPRESSION: NEGATIVE There is no sonographic evidence of malignancy. There is no abnormality seen in the left breast to correspond with the pain, however, clinical followup is recommended. A 1 year screening mammogram is recommended. This exam was interpreted at Station ID: [id number]. Electronically Signed By: Maynor smalls/naye:07/09/2022 10:24:37 letter sent: Clinical Evaluation Ultrasound BI-RADS: 1 Negative
--- NOTE | 2022-07-09 08:47 | DI.US.S_ITS ---
PROCEDURE: US THYROID INDICATIONS: thyroid nodule TECHNIQUE: Real-time scanning was performed of the thyroid gland, with image documentation. COMPARISON: [facility], US, US THYROID, 08/13/2018, 12:18. FINDINGS: Right: Thyroid lobe measures 6.9 x 3.2 x 2.2 cm, and is heterogeneous in echotexture. Left: Thyroid lobe measures 6.7 x 2.3 x 2.7 cm, and is heterogeneous in echotexture. Isthmus: 5 mm thick. Nodule number: 1 Location: Right upper pole Size: 2.1 x 1.6 x 1.1 cm, previously 2.0 x 1.4 x 2.2 cm. Composition: Solid Echogenicity: Hypoechoic Shape: Wider than tall Margins: Irregular, lobulated Echogenic foci: Punctate Total points: 9 ACR TI-RADS category: Highly suspicious Nodule number: 2 Location: Right middle/lower pole Size: 2.0 x 2.5 x 2.0 cm, previously 2.9 x 2.9 x 2.3 cm. Composition: Spongiform Echogenicity: Hypoechoic Shape: wider than tall. Margins: Irregular Echogenic foci: None Total points: 4 ACR TI-RADS category: Moderately suspicious Nodule number: 4 Location: Left middle/lower pole Size: 2.6 x 3.1 x 2.4 cm, previously 2.5 x 3.1 x 1.9 cm. Composition: Predominantly solid Echogenicity: Hypoechoic Shape: wider than tall. Margins: Smooth, lobulated Echogenic foci: Punctate Total points: 9 ACR TI-RADS category: Highly suspicious A previous thyroid nodule, previously described as nodule 3, is not visualized on today's study, occurring in an area of heterogeneity IMPRESSION: 1. Multinodular goiter, as before. 2. There are 2 separate nodules described above, labeled as nodule 1, and nodule 4, which are highly suspicious based on imaging criteria. Ultrasound-guided FNA for tissue diagnosis is suggested. 3. The nodule described as nodule to is moderately suspicious, and is also of sufficient size for ultrasound-guided FNA for tissue diagnosis based on recommendations below. ACR TI-RADS definitions and recommendations: TI-RADS 1 (benign): 0 points. FNA not needed. TI-RADS 2 (not suspicious): 2 points. FNA not needed. TI-RADS 3 (mildly suspicious): 3 points. * FNA if 2.5 cm or larger, follow up if 1.5 cm or larger (at 1, 3, and 5 years). TI-RADS 4 (moderately suspicious): 4-6 points. * FNA if 1.5 cm or larger, follow up if 1 cm or larger (at 1, 2, 3, and 5 years). TI-RADS 5 (highly suspicious): 7 points or more. * FNA if 1 cm or larger, follow up if 0.5 cm or larger (every year for 5 years). Dictated by: Urban Queen M.D. on 07/09/2022 at 10:44 Approved by: Urban Queen M.D. on 07/09/2022 at 10:52
--- NOTE | 2022-07-09 08:47 | DI.MG.S_ITS ---
BILATERAL DIGITAL DIAGNOSTIC MAMMOGRAM 3D/2D: 07/09/2022 CLINICAL: Left breast pain. Comparison is made to exams dated: 06/18/2017 mammogram - [facility] and 09/03/2020 mammogram - outside [facility]. There are scattered areas of fibroglandular density in both breasts (category b / 25%-50% glandular tissue). No significant masses, calcifications, or other findings are seen in either breast. IMPRESSION: INCOMPLETE: NEEDS ADDITIONAL IMAGING EVALUATION There is no abnormality seen in the left breast to correspond with the pain in the superior aspect, however, ultrasound is recommended. Based on the Tyrer Cuzick model (a risk assessment model) the patient's lifetime risk is 9.9% and her 10 year risk is 2.6%. According to the ACR, ACS, and NCCN guidelines, an annual breast MRI exam along with mammogram is recommended if the patient's lifetime risk is 20% or greater. This exam was interpreted at Station ID: [id number]. NOTE: For mammograms, a report in lay terms will be sent to the patient. Approximately 15% of breast malignancies will not be visualized mammographically. In the management of a palpable breast mass, a negative mammogram must not discourage biopsy of a clinically suspicious lesion. Electronically Signed By: Maynor smalls/naye:07/09/2022 10:22:08 ACR BI-RADS Category 0: Incomplete [id number]
== END ==
PROVIDERS: Family Provider Family Medicine; PCP Family Medicine; Referring Provider Family Medicine; Visit Provider Family Medicine
DX: R92.2 Inconclusive mammogram (principal); N64.4 Mastodynia; E04.2 Nontoxic multinodular goiter
CPT/HCPCS: 76536; 76642; 77066; G0279

== ENCOUNTER → 2022-09-14 07:47 | Outpatient (CLI) | payer OTHER, MEDICAID, SELFPAY ==
--- NOTE | 2022-09-14 | PATH_ITS ---
Note [facility] Accession Number: [id number] TESTS RESULT FLAG UNITS REF RANGE LAB Clinician Provided Cytology Information No. of containers..01 Other (Miscellaneous) No. of containers..02 Previously Prepared Cytology Slide Source: RIGHT MID/INFERIOR THYROID NODULE #2 (B) DIAGNOSIS: RIGHT MID/INFERIOR THYROID NODULE #2 (B) INCONCLUSIVE. BETHESDA CATEGORY III. ATYPIA OF UNDETERMINED SIGNIFICANCE. MOLECULAR STUDIES PENDING; RESULTS WILL BE REPORTED SEPARATELY. Pathologist ICD10: R89.6 Signed out by: Nicci Saab MD, Pathologist NPI- [id number] Performed by: Jessica Hunter, Invoice Coder ([facility]) Gross description: 30 CC, CLEAR, CLEAR RECIEVED: IN CYTOLYT WITH 6 ALCOHOL FIXED AND 6 QUICK STAINED SLIDES ALSO 1 RNA VIAL WAS RECEIVED.VO /VDU 09/17/2022 [facility] Local FLAG LEGEND: L-Low Normal,H-High Normal,LL-Alert Low,HH-Alert High <-Panic Low,>-Panic High,A-Abnormal,AA-Critical Abnormal Performed at: 01 =Z [facility] [address], [place] [address] Jamal Brand MD, Specimen Comment: [id number] Performed at: 01 [facility] [address], [place], [place] [id number] MD Jamal Brand MD Phone: [phone]
--- NOTE | 2022-09-14 | PATH_ITS ---
Note [facility] Accession Number: [id number] TESTS RESULT FLAG UNITS REF RANGE LAB Clinician Provided Cytology Information No. of containers..01 Other (Miscellaneous) No. of containers..02 Previously Prepared Cytology Slide Source: LEFT INFERIOR THYROID NODULE #4 (C) DIAGNOSIS: LEFT INFERIOR THYROID NODULE #4 (C) INCONCLUSIVE. BETHESDA CATEGORY III. ATYPIA OF UNDETERMINED SIGNIFICANCE. MOLECULAR STUDIES PENDING; RESULTS WILL BE REPORTED SEPARATELY. Pathologist ICD10: R89.6 Signed out by: Nicci Saab MD, Pathologist NPI- [id number] Performed by: Kamran Washington, De Icer ([facility]) Gross description: 30 CC, RED, CLOUDY RECIEVED: IN CYTOLYT WITH 6 ALCOHOL FIXED AND 6 QUICK STAINED SLIDES ALSO 1 RNA VIAL WAS RECEIVED.VO /VDU 09/17/2022 [facility] Local FLAG LEGEND: L-Low Normal,H-High Normal,LL-Alert Low,HH-Alert High <-Panic Low,>-Panic High,A-Abnormal,AA-Critical Abnormal Performed at: 01 =Z [facility] Cyt[facility] [address], [place] [address] Jamal Brand MD, Specimen Comment: [id number] Performed at: 01 [facility] Cyt[facility] [address], [place], [place] [id number] MD Jamal Brand MD Phone: [phone]
--- NOTE | 2022-09-14 | PATH_ITS ---
Note [facility] Accession Number: [id number] TESTS RESULT FLAG UNITS REF RANGE LAB Clinician Provided Cytology Information No. of containers..01 Other (Miscellaneous) No. of containers..02 Previously Prepared Cytology Slide Source: RIGHT SUPERIOR THYROID NODULE #1 (A) DIAGNOSIS: RIGHT SUPERIOR THYROID NODULE #1 (A) NEGATIVE FOR MALIGNANT CELLS. BETHESDA CATEGORY II. SPECIMEN CONSISTS OF BENIGN FOLLICULAR CELLS, HEMOSIDERIN-LADEN MACROPHAGES, COLLOID, AND BLOOD. THIS PATTERN IS CONSISTENT WITH A COLLOID NODULE. Pathologist ICD10: 01 E04.1 Signed out by: Nicci Saab MD, Pathologist NPI- [id number] Performed by: Kamran Washington, Straightedge Machine Operator Helper ([facility]) Gross description: 30 CC, PINK, CLEAR RECIEVED: IN CYTOLYT WITH 6 ALCOHOL FIXED AND 6 QUICK STAINED SLIDES ALSO 1 RNA VIAL WAS RECEIVED.VO /VDU 09/17/2022 1035 Local FLAG LEGEND: L-Low Normal,H-High Normal,LL-Alert Low,HH-Alert High <-Panic Low,>-Panic High,A-Abnormal,AA-Critical Abnormal Performed at: 01 =Z [facility] [address], [place] [address] Jamal Brand MD, Specimen Comment: [id number] Performed at: 01 [facility] Cytology [address] [place] [address] [address], [place], [place] [id number] MD Jamal Brand MD Phone: [phone]
--- NOTE | 2022-09-14 07:48 | DI.US.S_ITS ---
PROCEDURE: US FINE NEEDLE ASPIRATION INDICATIONS: RIGHT SUP #1, RIGHT MID #2, AND LEFT INF #4 NODULES TECHNIQUE: The indications, alternatives, benefits, risks, and complications of the procedure were explained to the patient. Written informed consent was obtained and placed in the chart. The area of interest was examined sonographically and a site was chosen for ultrasound guided percutaneous sampling. The skin was prepared and draped in the usual fashion, and anesthetized with 1% lidocaine infiltrated from the skin down to the lesion. Multiple passes were then performed, with contents emptied into an appropriate pathology specimen container. A bandage was applied to the area of access at completion of the study. COMPARISON: None. FINDINGS: Location(s) of lesion(s) sampled: Right superior, right mid and left inferior nodules [place]: 22 and 25 gauge hypodermic needles. Number of passes: For each nodule, 5 passes with a 25 gauge hypodermic needle and 1 pass with a 22 gauge hypodermic needle with aspiration. Medications: 1% lidocaine for local anaesthesia. Complications: None. IMPRESSION: Successful ultrasound-guided thyroid nodule fine needle aspiration, with cytology results pending. Dictated by: Lucinao Norton M.D. on 09/14/2022 at 11:31 Approved by: Luciano Norton M.D. on 09/14/2022 at 11:33
== END ==
PROVIDERS: Family Provider Family Medicine; PCP Family Medicine; Referring Provider Family Medicine; Visit Provider Family Medicine
DX: E04.2 Nontoxic multinodular goiter (principal)
CPT/HCPCS: 10005; 10006

== ENCOUNTER → 2022-09-29 10:08 | Outpatient (CLI) | payer OTHER, MEDICAID, SELFPAY ==
[2022-10-01 02:39] LABS: Labcorp Hemoglobin (Hb) A1c 6.2 % (4.8-5.6)
== END ==
PROVIDERS: Family Provider Family Medicine; PCP Family Medicine; Referring Provider Family Medicine; Visit Provider Family Medicine
DX: E11.9 Type 2 diabetes mellitus without complications (principal)
CPT/HCPCS: 36415; 83036

== ENCOUNTER → 2023-01-08 09:54 | Outpatient (CLI) | payer OTHER, MEDICAID, SELFPAY | PROVIDERS: Family Provider Family Medicine; PCP Family Medicine; Visit Provider Student in an Organized Health Care Education/Training Program | DX: R30.0 Dysuria (principal) | CPT/HCPCS: 87077; 87086; 87186 ==

== ENCOUNTER → 2023-04-03 06:48 | Outpatient (CLI) | payer OTHER, MEDICAID, SELFPAY ==
--- NOTE | 2023-04-03 06:50 | DI.US.S_ITS ---
PROCEDURE: US CAROTID DOPPLER BI INDICATIONS: pulsating sensation in head TECHNIQUE: Color and pulse Doppler interrogation was performed of both carotid systems, with image documentation and velocity measurements. [facility], CT, CT SOFT TISSUE NECK WITH CONTRAST, 11/21/2022, 15:46. N50-70%: FINDINGS: Stenosis calculations are based on SRU (Society of Radiologists in Ultrasound) criteria. Right side: Brachial blood pressure: 108/65 mm Hg. Common carotid artery peak systolic velocity: 162 cm/sec. Internal carotid artery peak systolic velocity: 88 cm/sec. Internal carotid artery end diastolic velocity: 39 cm/sec. External carotid artery peak systolic velocity: 151 cm/sec. ICA/CCA peak systolic ratio: 0.6 . Nogueira scale imaging description: No significant plaque Percent internal carotid artery stenosis: No significant stenosis Vertebral artery: Flow direction is antegrade. Left side: Brachial blood pressure: 107/70 mm Hg. Common carotid artery peak systolic velocity: 130 cm/sec. Internal carotid artery peak systolic velocity: 130 cm/sec. Internal carotid artery end diastolic velocity: 31 cm/sec. External carotid artery peak systolic velocity: 148 cm/sec. ICA/CCA peak systolic ratio: 1.0 . Nogueira scale imaging description: No significant plaque Percent internal carotid artery stenosis: 50-70% by velocity . Vertebral artery: Flow direction is antegrade. IMPRESSION: 1. By velocity measurements, there is 50-70% stenosis of the left proximal ICA. However, no significant plaque is seen and this is likely an overestimate. 2. No significant stenosis of the right ICA. 3. Incidental note of small right subclavian artery atherosclerotic plaque without significant stenosis. 4. Multiple bilateral thyroid nodules are incidentally noted and not completely evaluated, please refer to prior thyroid ultrasound. Dictated by: Luciano Norton M.D. on 04/03/2023 at 8:57 Approved by: Luciano Norton M.D. on 04/03/2023 at 9:01
== END ==
LOC: US 06:49
PROVIDERS: Family Provider Family Medicine; PCP Family Medicine; Referring Provider Family Medicine; Visit Provider Family Medicine
DX: G43.109 Migraine with aura, not intractable, without status migrainosus (principal); I67.89 Other cerebrovascular disease; I65.22 Occlusion and stenosis of left carotid artery; E04.2 Nontoxic multinodular goiter
CPT/HCPCS: 93880

== ENCOUNTER → 2023-07-16 12:46 | Outpatient (CLI) | payer OTHER, MEDICAID, SELFPAY ==
--- NOTE | 2023-07-16 | DI.MG.S_ITS ---
BILATERAL DIGITAL SCREENING MAMMOGRAM 3D/2D WITH CAD: 07/16/2023 CLINICAL: Routine screening. Family history of breast cancer. Comparison is made to exams dated: 07/09/2022 mammogram - [facility], 09/03/2020 mammogram - outside [facility], and 06/18/2017 mammogram - [facility]. There are scattered areas of fibroglandular density in both breasts (category b / 25%-50% glandular tissue). Current study was also evaluated with a Computer Aided Detection (CAD) system. No significant masses, calcifications, or other findings are seen in either breast. There has been no significant interval change. IMPRESSION: NEGATIVE There is no mammographic evidence of malignancy. A 1 year screening mammogram is recommended. Based on the Tyrer Cuzick model (a risk assessment model) the patient's lifetime risk is 9.8% and her 10 year risk is 2.7%. According to the ACR, ACS, and NCCN guidelines, an annual breast MRI exam along with mammogram is recommended if the patient's lifetime risk is 20% or greater. This exam was interpreted at Station ID: [id number]. NOTE: For mammograms, a report in lay terms will be sent to the patient. Approximately 15% of breast malignancies will not be visualized mammographically. In the management of a palpable breast mass, a negative mammogram must not discourage biopsy of a clinically suspicious lesion. Electronically Signed By: Maynor smalls/naye:07/16/2023 16:01:49 letter sent: Normal Exam ACR BI-RADS Category 1: Negative [id number]
== END ==
PROVIDERS: Family Provider Family Medicine; PCP Family Medicine; Referring Provider Family Medicine; Visit Provider Family Medicine
DX: Z12.31 Encounter for screening mammogram for malignant neoplasm of breast (principal); Z80.3 Family history of malignant neoplasm of breast; R92.323 Mammographic fibroglandular density, bilateral breasts
CPT/HCPCS: 77063; 77067

== ENCOUNTER → 2024-09-30 13:35 | Outpatient (CLI) | payer OTHER, SELFPAY ==
--- NOTE | 2024-09-30 13:36 | DI.MG.S_ITS ---
MM screening mammo BI: 09/30/2024. BI-RADS: 1 CLINICAL: 53-year old female for bilateral screening mammogram. Tyrer-Cuzick lifetime risk of 11.0%. No personal or first-degree family history of breast cancer. PRIOR EXAMS 07/16/2023, 07/09/2022, 06/18/2017. MAMMOGRAPHY TECHNIQUE: 2D and 3D (tomosynthesis) digital mammographic views obtained, with additional images as needed for full coverage. Current study was also evaluated with a Computer Aided Detection (CAD) system. DENSITY B. There are scattered areas of fibroglandular density. MAMMOGRAPHY FINDINGS Bilateral: No suspicious mass, asymmetry, microcalcification, or other abnormality seen. IMPRESSION: * No evidence of malignancy. RECOMMENDATIONS Bilateral * Annual screening mammography. OVERALL ASSESSMENT CATEGORY BI-RADS-1: Negative. The [employer] recommends annual screening mammography beginning at age 40 for women with average risk of breast cancer. ELECTRONICALLY SIGNED: Soheila Maharaj M.D. on 10/05/2024 at 12:45:23 PM PT Interpreting Station ID: [id number]
== END ==
LOC: MAMMO 13:35
PROVIDERS: Family Provider Family Medicine; PCP Family Medicine; Referring Provider Family Medicine; Visit Provider Family Medicine
DX: Z12.31 Encounter for screening mammogram for malignant neoplasm of breast (principal)
CPT/HCPCS: 77063; 77067

== ENCOUNTER → 2024-12-17 07:54 | Outpatient (CLI) | payer OTHER, SELFPAY ==
--- NOTE | 2024-12-17 07:55 | DI.RAD.S_ITS ---
PROCEDURE: XR SHOULDER RT MIN 2V INDICATIONS: Right shoulder pain 3 months TECHNIQUE: 3 views of the shoulder were acquired. COMPARISON: None. FINDINGS: Bones: No acute fractures or dislocations. No suspicious bony lesions. Visualized ribs appear intact. Soft tissues: No suspicious soft tissue calcifications. Surgical clips project over the right lower neck. IMPRESSION: No acute bony abnormality. Dictated by: Elsie BECKETT Interpreted: Maynor Cespedes MD on 12/17/2024 at 8:33 Transcribed by: ROMARIO on 12/17/2024 at 8:33 Approved by: Maynor Cespedes M.D. on 12/17/2024 at 12:40
== END ==
PROVIDERS: Family Provider Family Medicine; PCP Family Medicine; Referring Provider Nurse Practitioner Family; Visit Provider Nurse Practitioner Family
DX: S46.911A Strain of unspecified muscle, fascia and tendon at shoulder and upper arm level, right arm, initial encounter (principal); X58.XXXA Exposure to other specified factors, initial encounter
CPT/HCPCS: 73030